=== PATIENT | female | born 1955 | race Caucasian/White ===

== ENCOUNTER 2017-05-20 05:10 | Inpatient (IN) | payer BC ==
--- NOTE | 2017-05-15 10:37 | MH ---
cc: AILEEN BACA DATE OF ADMISSION: 05/20/2017 ADMITTING DIAGNOSIS Severe osteoarthritis of the left glenohumeral joint and pain of the left shoulder HISTORY OF PRESENT ILLNESS The patient is a 61-year-old white female who has experienced pain in her left shoulder for greater than four years duration. She had originally noted the gradual onset of soreness and stiffness about her shoulder area unrelated to any injury or unusual activity. She had undergone previous orthopedic evaluation and at that time was diagnosed as having an arthritic condition of her shoulder. Over the following year she did receive multiple cortisone injections which in the more recent past was being administered every three months. Unfortunately the patient was unable to appreciate any long-term benefit. She had also been utilizing both ibuprofen and Aleve without any appreciable relief. With the passage of time she became progressively more symptomatic with pain and obvious limitations regarding all activities of daily living involving the use of her left upper extremity. Within the past nine years she had fallen from a roof landing onto her left side but did not recall any specific injury involving her shoulder area at that time. When seen in the office in February of this year as a second opinion evaluation her x-ray studies did reveal severe degenerative changes of the glenohumeral joint with subtotal obliteration of the joint space and prominent hypertrophic bony reaction along the inferior margin of the humeral head. Findings and treatment options were reviewed with the patient at that time. The pros and cons of continuing with conservative management versus operative intervention involving shoulder arthroplasty were outlined in detail. Emphasis was made regarding the fact that the decision to proceed with surgery would be left entirely to the patient's discretion. At that time the patient was prescribed diclofenac and followed on an outpatient basis thereafter. She remained symptomatic with pain about the shoulder area and subsequently underwent a CT scan with contrast the results of which identified marked osteoarthritis of the glenohumeral joint with posterior downsloping of the glenoid and a small posterior labral tear. The rotator cuff was reported to be intact. These findings were reviewed and treatment options discussed. Once again the option for surgery was outlined and at that time the patient felt that her symptoms had progressed to a point in time where she was ready to proceed with such treatment. In compliance with her wishes she is currently being admitted to the hospital in order that reverse shoulder arthroplasty be accomplished. She is right hand dominant. PAST MEDICAL HISTORY Her past medical history, hospitalizations and surgeries have included: 1. Appendectomy. 2. Tonsillectomy. 3. Tubal ligation. 4. Colonoscopy. Her medical illnesses include: Hypertension for which the patient takes lisinopril 20 mg daily. MEDICATIONS Additional medications include: 1. Paroxetine 20 mg daily. 2. Prempro 0.625 mg daily. 3. Pravastatin 20 mg daily. 4. 81 mg aspirin tablet daily. 5. Vitamin-C twice daily. 6. Citracal twice daily. 7. Fish oil 1400 mg daily. 8. Vitamin-B12 1000 mg daily. 9. Adult multivitamin tablet daily. 10. Night Aid 50 mg daily. 11. Naproxen 220 mg, four tablets daily. ALLERGIES The patient denies any known drug allergies. REVIEW OF SYSTEMS She wears both glasses and contact lenses. History of migraine headaches. No seizure or syncope. No sinus congestion or epistaxis. Auditory acuity intact. No tinnitus. No bleeding gums or dysphagia. Denies cough, shortness of breath, upper respiratory infection, pneumonia or tuberculosis. No angina or heart disease. She is medically managed for hypertension. Her appetite is good. Bowel movements are regular. No hepatitis, gallbladder disease, ulcers or hemorrhoids. No urinary tract infection. No kidney stones. No fractures. No psychiatric illness. Her remaining review of systems is unremarkable and noncontributory. FAMILY HISTORY The patient has been for four years, this being her third marriage. Her is in good health. Two sons described as being in good health. Family history is otherwise positive for hypertension, diabetes and heart disease. SOCIAL HISTORY The patient completed a high school education. 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 She denies active use of tobacco for over 20 years, but had been an approximately one pack per day user on an intermittent basis during the 20-25 years prior to that time. Ethanol consumption on a very limited and rare basis. PHYSICAL EXAMINATION Height 5 feet 2 inches, weight 142 pounds. GENERAL: An alert, oriented and responsive 61-year-old white female who sits quietly upon the examination table with no obvious distress. HEAD, EYES, EARS, NOSE, AND THROAT: Pupils are equally round and reactive to light. Extraocular movements full. Sclera clear. External nares clear. External auditory canals clear. Dental intact. Mucous membranes pink and moist. Pharynx clear. NECK: Supple. Active range of motion with no appreciable pain. Carotid pulse palpable bilaterally. Trachea midline. Thyroid without enlargement. LUNGS: Clear to auscultation and percussion. No CVA tenderness. BACK: No discomfort throughout the dorsolumbar spine. HEART: Regular rhythm. No murmur or gallop. ABDOMEN: Soft, nontender. Bowel sounds present. PELVIC: Per primary care physician. EXTREMITIES: Left Shoulder: There is tenderness generalized about the shoulder region, especially involving the anterior and superior aspect of the shoulder joint. No palpable deformity. Limited and restricted mobility of the shoulder joint in all ranges assessed with the patient unable to demonstrate no more than 30 degrees of forward flexion with pain at the extreme of motion, 30 degrees of extension. Internal rotation limited to the lateral waist level. The patient is unable to complete satisfactory cross arm positioning of left hand onto right shoulder. Drop-arm test is positive. 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 Sensory intact. NEUROLOGIC: Cranial nerves II through XII grossly intact. IMPRESSION 1. Severe osteoarthritis of the left glenohumeral joint. 2. Pain left shoulder PLAN Left reverse shoulder arthroplasty. The nature of the planned surgical procedure, the potential complications and risks associated, the expectations of surgery and the consent form were thoroughly reviewed with the patient prior to her admission to the hospital. In addition, emphasis was made regarding the fact that the patient was definitely on the young side of the chronological scale for such surgery but given her degree of incapacitation and limitations it is anticipated that this procedure offers the patient a more favorable option for benefit at this point in time. The patient has indicated her full understanding in this regard and given consent to proceed with treatment as outlined. Medical evaluation and clearance for surgery will be completed by her primary care physician, Dr. Jonh Neff. Aileen Baca MD NBS/BT /11:42 AM /10:23 AM
[~2017-05-20] VITALS: Ht 160 cm; Wt 64.6 kg
[~2017-05-20 05:10] MED LIST: CYAN1TAB24 PO; LISI-515 PO; MULTTAB25 PO; OMEG12007 PO; PARO20TA2 PO; PRAV20TA2 PO; PREM.625 PO; TYLE325T PO; ZINC50TA2 PO
[2017-05-20] MEDS ORDERED: SODIUM CHLORID 0.9% 500 ML IV PRN (05:30)
[2017-05-20] MEDS ORDERED: POVIDONE IODINE 5% (ANTISEPSIS KIT) 4 APPLICATIONS EACH NARE PRN (05:30)
[2017-05-20] MEDS ORDERED: CHLORHEXIDINE GLUCONATE 2 % 1 PACK (2 CLOTHS) TOPICAL PRN (05:30)
[2017-05-20] MEDS ORDERED: LACTATED RINGER'S 1000 ML IV PRN (05:30)
[2017-05-20] MEDS ORDERED: METOPROLOL TARTRATE 25 MG TAB PO PRN (05:30)
[2017-05-20] MEDS ORDERED: INSULIN HUMAN REGULAR 1,000 UNITS/10 ML VIAL SQ PRN (05:30)
[2017-05-20] MEDS ORDERED: ceFAZolin 2 GM PREMIX 50 ML IV SCH (05:45)
[2017-05-20] MEDS ORDERED: POVIDONE IODINE 7.5% SCRUB 118 ML BOTTLE TOPICAL SCH (05:45)
[2017-05-20] MEDS ORDERED: ceFAZolin INJ 1,000 MG VIAL ONE (05:54)
[2017-05-20] MEDS ORDERED: TRANEXAMIC ACID 1 GM PRIOR TO PROCEDURE IV SCH ×2 (07:00)
[2017-05-20] MEDS: TRANEXAMIC ACID 1 GM POST-OP IV SCH ×4 (09:44→10:05)
[2017-05-20] MEDS ORDERED: DO NOT ADM ANY ANTICOAGULANT DRUGS PRN (10:01)
[2017-05-20] MEDS ORDERED: TRANEXAMIC ACID INJ 1,000 MG in SODIUM CHLORIDE 0.9% INJ 100 ML IV ONE (10:05)
[2017-05-20] MEDS ORDERED: BUPIVACAINE HCL PF 0.5% 30 ML VIAL ONE (10:27)
--- NOTE | 2017-05-20 10:34 | MP ---
cc: AILEEN BACA MD DATE OF SURGERY 05/20/2017 PREOPERATIVE DIAGNOSIS Severe osteoarthritis of the left glenohumeral joint with pain of the left shoulder. POSTOPERATIVE DIAGNOSIS Severe osteoarthritis of the left glenohumeral joint with pain of the left shoulder. PROCEDURE Left reverse shoulder arthroplasty. SURGEON Aileen Baca MD ANESTHESIA General endotracheal INDICATIONS This is a 61-year-old white female with pain of her left shoulder of greater than four years duration. She had originally noted the gradual onset of her symptoms unrelated to injury or unusual activity. She has undergone previous orthopedic evaluation at which time she was diagnosed as having an arthritic condition of her shoulder and over the following years, she did receive multiple cortisone injections which in the recent past had been administered every three months. Unfortunately, the patient was unable to appreciate any long-term benefit as well as utilizing both ibuprofen and Aleve without relief of her discomfort. With the passage of time, she became progressively more symptomatic with pain and obvious limitations regarding all activities of daily living that involved the use of her left upper extremity. Within the past nine years, she had fallen from a roof landing onto her left side, but did not recall any specific injury involving her shoulder area. She was seen in the office in February of this year for a second opinion evaluation. At that time, her x-ray studies revealed severe degenerative changes of the glenohumeral joint with subtotal obliteration of the joint space and prominent hypertrophic bony reaction along the inferior margin of the humeral head. Findings and treatment options were reviewed with the patient at that time. The pros and cons of continuing with conservative management versus operative intervention that would involve a shoulder arthroplasty were outlined in detail. Emphasis was made regarding the fact that the decision to proceed with surgery will be left entirely to the patient's discretion. The patient was prescribed diclofenac while being followed on an outpatient basis, but remained symptomatic about the shoulder area. A subsequent CT scan with contrast of the left shoulder identified marked osteoarthritis of the glenohumeral joint with posterior downsloping of the glenoid and a small posterior labral tear. The rotator cuff was intact. Findings and treatment options were again reviewed. Once again, the option for surgery was outlined. The patient felt that her symptoms had progressed to a point in time where she was ready to proceed with such treatment and in compliance with her wishes, she was scheduled for admission in order that reverse shoulder arthroplasty be accomplished, she is right-hand dominant. FORMAT Following the induction of satisfactory general anesthesia by endotracheal intubation as completed per the Department of Anesthesia, the patient was positioned upon the operating table in a modified beach-chair configuration. The left shoulder and aspirate tremor the proper was isolated with a U-drape thereafter being prepped with Betadine solution and draped into a sterile field in the routine manner. Prior to initiation of the actual procedure, the standard time-out protocol was completed. All parameters were appropriately addressed and confirmed by operating room personnel. A standard anterior approach to the shoulder was initiated through a sharp skin incision overlying the deltopectoral interval being extended from the inferior margin of the clavicle overlying the prominence of the coracoid process and extending distally to the axillary crease. The incision was developed through underlying subcutaneous tissue with hemostasis maintained by electrocautery. By deepening dissection, the deltopectoral interval was developed. The cephalic vein was exposed and utilized as an anatomical landmark as the interval was developed in a distal to proximal orientation, the vein being retracted in a lateral orientation with the deltoid musculature. Digital release of subdeltoid adhesions was accomplished and thereafter the shoulder was maintained in a slightly externally rotated orientation. A limited release of the pectoralis major insertion was accomplished. The three sister circumflex vessels were identified, clamped and coagulated. The biceps tendon was released proximally and tenodesed to the stump of the pectoralis tendon, the excess portion being resected. With the shoulder maintained in an externally rotated orientation, the subscapularis tendon was released in a superior to inferior orientation along the anatomical neck of the humerus. The humeral head was developed into the wound. There was a prominent hypertrophic reaction along the inferior margins of the humeral head which removed with a rongeur. An entry point was placed superiorly about the humeral head adjacent to the bicipital groove and thereafter sequential rasping was accomplished from 4 through 9 mm. Broaching followed with matching sizes through 9 mm with a 9 mm stem determined to be a satisfactory fit. The covering cap was placed and attention was directed to the glenoid. Retractors were placed posterior, anterior and superiorly facilitating exposure. The stump of the biceps tendon was resected as was the glenoid labrum and the superior middle inferior glenohumeral ligament. With the glenoid exposed in a 360 degree circumferential orientation, hash zuniga were placed at the 12 to 6 o'clock position and the 3 to 9 o'clock position allowing orientation of the central portion of the glenoid. A guide pin was placed in slight inferior tilt over which the step-down reamer was passed creating a central peg hole. Thereafter, a 25 mm Glenosphere mini baseplate was firmly seated with a 35 mm central locking screw placed. Peripheral locking screws include 25-mm screws superiorly and inferiorly and 15 mm screws anteriorly and posteriorly. With the baseplate firmly established, a 36 mm Glenosphere was firmly seated with maximum inferior offset. Attention was redirected to the proximal humerus with the [address] Trial reductions followed utilizing 36 x 44-mm bearings both standard and +3 sizing utilize, the +3 sizing determined to be the more favorable and stable fit. With the bearing in place, the shoulder was carried through a passive range of motion with stability demonstrated throughout the arc of mobility. An open dislocation was completed. The trial humeral components being removed, the canal was thoroughly irrigated and dried and thereafter the 9 mm mini humeral stem was firmly seated to which a 44-mm humeral tray with 44 x 36 +3 humeral bearing attached to the stem itself and an open reduction completed. Repeat range of motion again noted stability as previously described. Final irrigation was accomplished with hemostasis maintained. The deltopectoral interval was repaired with 0 Vicryl suture. The remaining portion of the wound was closed in layers in the routine manner skin margins being reapproximated with a running subcuticular 3-0 Vicryl suture over which Steri-Strips were applied. A dry sterile dressing was placed. The extremity being supported an arm sling, anesthesia was discontinued. The patient was thus transferred to a hospital bed returned to recovery room in satisfactory condition having tolerated her operative procedure well. Estimated blood loss was approximately 300 cc as determined per the Anesthesia. 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 MD SHAD Beth/AGATA /10:02 AM /10:14 AM
--- NOTE | 2017-05-20 10:40 | RADRPT ---
EXAM DATE/TIME: 05/20/2017 10:22 [facility] COMPARISON: No previous studies available for comparison. INDICATIONS : Post op left shoulder surgery. MEDICAL HISTORY : None. SURGICAL HISTORY : None. ENCOUNTER: Initial ACUITY: 1 day PAIN SCORE: 10/10 LOCATION: Left shoulder FINDINGS: Status post total shoulder arthroplasty. Prosthesis well seated, alignment anatomic. CONCLUSION: Anatomic alignment. Bigg Flores MD FACR on May 20, 2017 at 10:39 Board Certified Radiologist. This report was verified electronically.
[2017-05-20 11:22] VITALS: BP 121/66; PULSE 109; RESP 17; TEMP 98.9; O2SAT 98
--- NOTE | 2017-05-20 11:22 | PD.CONS ---
[facility] By Reason for Consult medical management Primary Care Physician No Primary Care Physician Diagnoses: History of Present Illness patient is a 62 y/o female with history of left shoulder osteoarthritis who underwent left shoulder arthroplasty today. at the time of my evaluation she was resting comfortably with no acute distress.pain is controlled. she denies any chest pain, sob, dizziness. no nausea or vomiting. Review of Systems Constitutional: DENIES: Fever, Weight loss, Chills, Night Sweats Eyes: DENIES: Blurred vision, Diplopia, Vision loss, Double Vision Ears, nose, mouth, throat: DENIES: Tinnitus, Vertigo, Throat pain, Epistaxis Respiratory: DENIES: Apneas, Cough, Snoring, Wheezing, Hemoptysis, Sputum production, Shortness of breath Cardiovascular: DENIES: Chest pain, Palpitations, Syncope, Dyspnea on Exertion , PND, Lower Extremity Edema, Orthopnea, Claudication Gastrointestinal: DENIES: Abdominal pain, Black stools, Bloody stools, Constipation, Diarrhea, Nausea, Vomiting, Difficulty Swallowing, Anorexia Genitourinary: DENIES: Urinary frequency, Urgency, Hematuria, Dysuria Musculoskeletal: DENIES: Joint pain, Muscle aches, Stiffness, Joint Swelling Integumentary: DENIES: Rash Neurologic: DENIES: Abnormal gait, Headache, Localized weakness, Paresthesias, Seizures, Speech Problems, Tremor, Poor Balance Psychiatric: DENIES: Anxiety, Confusion, Mood changes, Depression, Hallucinations, Agitation, Suicidal Ideation, Homicidal Ideation, Delusions Past Family Social History Allergies: Coded Allergies: No Known Allergies (Unverified , 05/20/17) Past Medical History osteoarthritis hypertension dyslipidemia Past Surgical History appendectomy tonsillectomy Reported Medications lisinopril pravastatin estrogen/progesterone paxil Active Ordered Medications Current Medications Lactated Ringer's 1,000 ml @ 30 mls/hr Q24H PRN IV SEE LABEL COMMENTS Last administered on 05/20/17t 06:00; Start 05/20/17 at 05:30; Stop 05/23/17 at 05:29 Sodium Chloride 500 ml @ 30 mls/hr [id number] PRN IV SEE LABEL COMMENTS; Start at 05:30; Stop 05/23/17 at 05:29 Metoprolol Tartrate (Lopressor) 25 mg [employer]OR [employer]SEM[employer] PRN PO SEE LABEL COMMENTS; Start 05/20/17 at 05:30; Stop 05/23/17 at 05:29 Povidone Iodine (Betadine 5% Antisepsis Kit) 1 applic [employer]OR [employer] PRN EACH NARE SEE LABEL COMMENTS Last administered on 05/20/17 06:00; Start 05/20/17 at 05:30 ; Stop 05/23/17 at 05:29 Chlorhexidine Gluconate (Chlorhexidine 2% Cloth) 3 pack [employer] PRN TOPICAL SEE LABEL COMMENTS Last administered on 05/20/17 06:00; Start 05/20/17 at 05:30 ; Stop 05/23/17 at 05:29 Insulin Human Regular (NovoLIN R INJ) See Protocol Table ... [employer] PRN SQ SEE PROTOCOL TABLE; Start 05/20/17 at 05:30; Stop 05/23/17 at 05:29 Povidone Iodine (Betadine 7.5% Scrub) 1 applic ONCE TOPICAL Last administered on 05/20/17 06:00; Start 05/20/17 at 05:45; Stop 05/23/17 at 05:44 Cefazolin Sodium/ Dextrose 50 ml @ 100 mls/hr [employer] IV ; Start 05/20/17 at 05:45; Stop 05/23/17 at 05:44 Tranexamic Acid 1000 mg/Sodium Chloride 110 ml @ 220 mls/hr ONCE IV Last administered on 05/20/17 06:44; Start 05/20/17 at 07:00; Stop 05/20/17 at 13:00 Tranexamic Acid 1000 mg/Sodium Chloride 110 ml @ 220 mls/hr ONCE IV Last administered on 05/20/17 09:44; Start 05/20/17 at 10:00; Stop 05/20/17 at 11:00 ; Status DC Cefazolin Sodium (Ancef Inj) 2,000 mg STK-MED ONCE .ROUTE Last administered on 05/18/17 06:44; Start 05/20/17 at 05:54; Stop 05/20/17 at 05:55; Status DC Dextrose/Sodium Chloride 1,000 ml @ 125 mls/hr Q8H IV ; Start 05/20/17 at 10:06 ; Status UNV IV Flush (NS Flush) 2 ml UNSCH PRN IVF FLUSH AFTER USING IV ACCESS; Start 05/20 at 10:15; Status UNV IV Flush (NS Flush) 2 ml BID IVF ; Start 05/20/17 at 21:00; Status UNV Cefazolin Sodium 1000 mg/Sodium Chloride 100 ml @ 200 mls/hr Q6H IV ; Start at 10:15; Stop 05/20/17 at 22:44; Status UNV Miscellaneous Information (Post-op Orders (for Pharmacy)) STAT ONCE XX ; Start 05/20/17 at 10:15; Stop 05/20/17 at 10:16; Status UNV Rivaroxaban (Xarelto) 10 mg Q24H PO ; Start 05/20/17 at 10:15; Status UNV Miscellaneous Medication ([facility] [place] [facility] Information) ONCE ONCE XX ; Start 05/20/17 at 10:15; Stop 05/20/17 at 10:16; Status UNV Acetaminophen/ Hydrocodone Bitart (Kelayres 5-325 Mg) 1 tab Q4H PRN PO PAIN LESS THAN 5 ON SCALE; Start 05/20/17 at 10:15; Status UNV Acetaminophen/ Hydrocodone Bitart (Kelayres 5-325 Mg) 2 tab Q4H PRN PO PAIN SCALE 5 TO 10; Start 05/20/17 at 10:15; Status UNV Tranexamic Acid 1000 mg/Sodium Chloride 110 ml @ 200 mls/hr UNSCH IV ; Start 05/20/17 at 10:15; Stop 05/20/17 at 10:47; Status UNV Ondansetron HCl (Zofran Inj) 4 mg Q6H PRN IVP NAUSEA OR VOMITING; Start at 10:15; Status UNV Zolpidem Tartrate (Ambien) 5 mg HS PRN PO SLEEP; Start 05/20/17 at 10:15; Status UNV Bisacodyl (Dulcolax Supp) 10 mg DAILY PRN [place] CONSTIPATION; Start 05/20/17 at 10 :15; Status UNV Naloxone HCl (Narcan Inj) 0.4 mg UNSCH PRN IV PUSH RESPIRATORY RATE LESS THAN 10; Start 05/20/17 at 10:15; Status UNV Morphine Sulfate (Morphine 1 Mg/ ml POSTDOCTORAL SCHOLAR) 30 mg UNSCH IV ; Start 05/20/17 at 10: 15; Status UNV POSTDOCTORAL SCHOLAR Dosage Infused (Pha) 1 Q8HR .XX ; Start 05/20/17 at 14:00; Status UNV Bupivacaine HCl (Marcaine Pf 0.5% Inj) 30 ml STK-MED ONCE .ROUTE ; Start at 10:27; Stop 05/20/17 at 10:28; Status DC Family History not relevant to this consult. Social History quit smoking years ago- doesn't drink. Physical Exam Vital Signs Vital Signs Date Time Temp Pulse Resp B/P (MAP) Pulse Ox O2 Delivery O2 Flow Rate FiO2 05/20/17 10:04 97.8 121 20 133/74 (93) 97 Nasal Cannula 2 05/20/17 05:48 98.4 89 20 143/82 (102) 96 Physical Exam GENERAL: This is a well-nourished, well-developed patient, in no apparent distress. SKIN: No rashes, ecchymoses or lesions. Cool and dry. HEAD: Atraumatic. Normocephalic. No temporal or scalp tenderness. EYES: Pupils equal round and reactive. Extraocular motions intact. No scleral icterus. No injection or drainage. ENT: Nose without bleeding, purulent drainage or septal hematoma. Throat without erythema, tonsillar hypertrophy or exudate. Uvula midline. Airway patent. NECK: Trachea midline. No JVD or lymphadenopathy. Supple, nontender, no meningeal signs. CARDIOVASCULAR: Regular rate and rhythm without murmurs, gallops, or rubs. RESPIRATORY: Clear to auscultation. Breath sounds equal bilaterally. No wheezes , rales, or rhonchi. GASTROINTESTINAL: Abdomen soft, non-tender, nondistended. No hepato-splenomegaly , or palpable masses. No guarding. MUSCULOSKELETAL: left shoulder covered with clean dressing. NEUROLOGICAL: Awake and alert. Cranial nerves II through XII intact. Motor and sensory grossly within normal limits. Five out of 5 muscle strength in all muscle groups. Normal speech. Imaging Last Impressions Shoulder X-Ray 05/20/17 0000 Signed Impressions: Service Date/Time: Saturday, May 20, 2017 10:22 - CONCLUSION: Anatomic alignment. Bigg Flores MD FACR Assessment and Plan Assessment and Plan A/P - osteoarthritis of the left shoulder- s/p left shoulder arthroplasty- management per ortho. -hypertension/ dyslipidemia; resume home meds -DVT prophylaxis; on Xarelto-per ortho thank you for the consult. Discussed Condition With the patient and RN. Kerrie Khalil MD May 20, 2017 11:22
--- NOTE | 2017-05-20 11:22 | PD.CONS ---
[facility] Service [facility] Consult Requested By Reason for Consult medical management Primary Care Physician No Primary Care Physician Diagnoses: History of Present Illness patient is a 62 y/o female with history of left shoulder osteoarthritis who underwent left shoulder arthroplasty today. at the time of my evaluation she was resting comfortably with no acute distress.pain is controlled. she denies any chest pain, sob, dizziness. no nausea or vomiting. Review of Systems Constitutional: DENIES: Fever, Weight loss, Chills, Night Sweats Eyes: DENIES: Blurred vision, Diplopia, Vision loss, Double Vision Ears, nose, mouth, throat: DENIES: Tinnitus, Vertigo, Throat pain, Epistaxis Respiratory: DENIES: Apneas, Cough, Snoring, Wheezing, Hemoptysis, Sputum production, Shortness of breath Cardiovascular: DENIES: Chest pain, Palpitations, Syncope, Dyspnea on Exertion , PND, Lower Extremity Edema, Orthopnea, Claudication Gastrointestinal: DENIES: Abdominal pain, Black stools, Bloody stools, Constipation, Diarrhea, Nausea, Vomiting, Difficulty Swallowing, Anorexia Genitourinary: DENIES: Urinary frequency, Urgency, Hematuria, Dysuria Musculoskeletal: DENIES: Joint pain, Muscle aches, Stiffness, Joint Swelling Integumentary: DENIES: Rash Neurologic: DENIES: Abnormal gait, Headache, Localized weakness, Paresthesias, Seizures, Speech Problems, Tremor, Poor Balance Psychiatric: DENIES: Anxiety, Confusion, Mood changes, Depression, Hallucinations, Agitation, Suicidal Ideation, Homicidal Ideation, Delusions Past Family Social History Allergies: Coded Allergies: No Known Allergies (Unverified , 05/20/17) Past Medical History osteoarthritis hypertension dyslipidemia Past Surgical History appendectomy tonsillectomy Reported Medications lisinopril pravastatin estrogen/progesterone paxil Active Ordered Medications Current Medications Lactated Ringer's 1,000 ml @ 30 mls/hr Q24H PRN IV SEE LABEL COMMENTS Last administered on 05/20/17t 06:00; Start 05/20/17 at 05:30; Stop 05/23/17 at 05:29 Sodium Chloride 500 ml @ 30 mls/hr [id number] PRN IV SEE LABEL COMMENTS; Start at 05:30; Stop 05/23/17 at 05:29 Metoprolol Tartrate (Lopressor) 25 mg TRUCK LOADER PRN PO SEE LABEL COMMENTS; Start 05/20/17 at 05:30; Stop 05/23/17 at 05:29 Povidone Iodine (Betadine 5% Antisepsis Kit) 1 applic TRUCK LOADER PRN EACH NARE SEE LABEL COMMENTS Last administered on 05/20/17 06:00; Start 05/20/17 at 05:30 ; Stop 05/23/17 at 05:29 Chlorhexidine Gluconate (Chlorhexidine 2% Cloth) 3 pack TRUCK LOADER PRN TOPICAL SEE LABEL COMMENTS Last administered on 05/20/17 06:00; Start 05/20/17 at 05:30 ; Stop 05/23/17 at 05:29 Insulin Human Regular (NovoLIN R INJ) See Protocol Table ... TRUCK LOADER PRN SQ SEE PROTOCOL TABLE; Start 05/20/17 at 05:30; Stop 05/23/17 at 05:29 Povidone Iodine (Betadine 7.5% Scrub) 1 applic ONCE TOPICAL Last administered on 05/20/17 06:00; Start 05/20/17 at 05:45; Stop 05/23/17 at 05:44 Cefazolin Sodium/ Dextrose 50 ml @ 100 mls/hr TRUCK LOADER IV ; Start 05/20/17 at 05:45; Stop 05/23/17 at 05:44 Tranexamic Acid 1000 mg/Sodium Chloride 110 ml @ 220 mls/hr ONCE IV Last administered on 05/20/17 06:44; Start 05/20/17 at 07:00; Stop 05/20/17 at 13:00 Tranexamic Acid 1000 mg/Sodium Chloride 110 ml @ 220 mls/hr ONCE IV Last administered on 05/20/17 09:44; Start 05/20/17 at 10:00; Stop 05/20/17 at 11:00 ; Status DC Cefazolin Sodium (Ancef Inj) 2,000 mg STK-MED ONCE .ROUTE Last administered on 05/18/17 06:44; Start 05/20/17 at 05:54; Stop 05/20/17 at 05:55; Status DC Dextrose/Sodium Chloride 1,000 ml @ 125 mls/hr Q8H IV ; Start 05/20/17 at 10:06 ; Status UNV IV Flush (NS Flush) 2 ml UNSCH PRN IVF FLUSH AFTER USING IV ACCESS; Start 05/20 at 10:15; Status UNV IV Flush (NS Flush) 2 ml BID IVF ; Start 05/20/17 at 21:00; Status UNV Cefazolin Sodium 1000 mg/Sodium Chloride 100 ml @ 200 mls/hr Q6H IV ; Start at 10:15; Stop 05/20/17 at 22:44; Status UNV Miscellaneous Information (Post-op Orders (for Pharmacy)) STAT ONCE XX ; Start 05/20/17 at 10:15; Stop 05/20/17 at 10:16; Status UNV Rivaroxaban (Xarelto) 10 mg Q24H PO ; Start 05/20/17 at 10:15; Status UNV Miscellaneous Medication ([facility] [place] Pharmacy Information) ONCE ONCE XX ; Start 05/20/17 at 10:15; Stop 05/20/17 at 10:16; Status UNV Acetaminophen/ Hydrocodone Bitart ([place] 5-325 Mg) 1 tab Q4H PRN PO PAIN LESS THAN 5 ON SCALE; Start 05/20/17 at 10:15; Status UNV Acetaminophen/ Hydrocodone Bitart ([place] 5-325 Mg) 2 tab Q4H PRN PO PAIN SCALE 5 TO 10; Start 05/20/17 at 10:15; Status UNV Tranexamic Acid 1000 mg/Sodium Chloride 110 ml @ 200 mls/hr UNSCH IV ; Start 05/20/17 at 10:15; Stop 05/20/17 at 10:47; Status UNV Ondansetron HCl (Zofran Inj) 4 mg Q6H PRN IVP NAUSEA OR VOMITING; Start at 10:15; Status UNV Zolpidem Tartrate (Ambien) 5 mg HS PRN PO SLEEP; Start 05/20/17 at 10:15; Status UNV Bisacodyl (Dulcolax Supp) 10 mg DAILY PRN [place] CONSTIPATION; Start 05/20/17 at 10 :15; Status UNV Naloxone HCl (Narcan Inj) 0.4 mg UNSCH PRN IV PUSH RESPIRATORY RATE LESS THAN 10; Start 05/20/17 at 10:15; Status UNV Morphine Sulfate (Morphine 1 Mg/ ml LAWYER) 30 mg UNSCH IV ; Start 05/20/17 at 10: 15; Status UNV LAWYER Dosage Infused (Pha) 1 Q8HR .XX ; Start 05/20/17 at 14:00; Status UNV Bupivacaine HCl (Marcaine Pf 0.5% Inj) 30 ml STK-MED ONCE .ROUTE ; Start at 10:27; Stop 05/20/17 at 10:28; Status DC Family History not relevant to this consult. Social History quit smoking years ago- doesn't drink. Physical Exam Vital Signs Vital Signs Date Time Temp Pulse Resp B/P (MAP) Pulse Ox O2 Delivery O2 Flow Rate FiO2 05/20/17 10:04 97.8 121 20 133/74 (93) 97 Nasal Cannula 2 05/20/17 05:48 98.4 89 20 143/82 (102) 96 Physical Exam GENERAL: This is a well-nourished, well-developed patient, in no apparent distress. SKIN: No rashes, ecchymoses or lesions. Cool and dry. HEAD: Atraumatic. Normocephalic. No temporal or scalp tenderness. EYES: Pupils equal round and reactive. Extraocular motions intact. No scleral icterus. No injection or drainage. ENT: Nose without bleeding, purulent drainage or septal hematoma. Throat without erythema, tonsillar hypertrophy or exudate. Uvula midline. Airway patent. NECK: Trachea midline. No JVD or lymphadenopathy. Supple, nontender, no meningeal signs. CARDIOVASCULAR: Regular rate and rhythm without murmurs, gallops, or rubs. RESPIRATORY: Clear to auscultation. Breath sounds equal bilaterally. No wheezes , rales, or rhonchi. GASTROINTESTINAL: Abdomen soft, non-tender, nondistended. No hepato-splenomegaly , or palpable masses. No guarding. MUSCULOSKELETAL: left shoulder covered with clean dressing. NEUROLOGICAL: Awake and alert. Cranial nerves II through XII intact. Motor and sensory grossly within normal limits. Five out of 5 muscle strength in all muscle groups. Normal speech. Imaging Last Impressions Shoulder X-Ray 05/20/17 0000 Signed Impressions: Service Date/Time: Saturday, May 20, 2017 10:22 - CONCLUSION: Anatomic alignment. Bigg Flores MD FACR Assessment and Plan Assessment and Plan A/P - osteoarthritis of the left shoulder- s/p left shoulder arthroplasty- management per ortho. -hypertension/ dyslipidemia; resume home meds -DVT prophylaxis; on Xarelto-per ortho thank you for the consult. Discussed Condition With the patient and RN. Kerrie Khalil MD May 20, 2017 11:22
--- NOTE | 2017-05-20 11:22 | PD.CONS ---
[facility] By Reason for Consult medical management Primary Care Physician No Primary Care Physician Diagnoses: History of Present Illness patient is a 62 y/o female with history of left shoulder osteoarthritis who underwent left shoulder arthroplasty today. at the time of my evaluation she was resting comfortably with no acute distress.pain is controlled. she denies any chest pain, sob, dizziness. no nausea or vomiting. Review of Systems Constitutional: DENIES: Fever, Weight loss, Chills, Night Sweats Eyes: DENIES: Blurred vision, Diplopia, Vision loss, Double Vision Ears, nose, mouth, throat: DENIES: Tinnitus, Vertigo, Throat pain, Epistaxis Respiratory: DENIES: Apneas, Cough, Snoring, Wheezing, Hemoptysis, Sputum production, Shortness of breath Cardiovascular: DENIES: Chest pain, Palpitations, Syncope, Dyspnea on Exertion , PND, Lower Extremity Edema, Orthopnea, Claudication Gastrointestinal: DENIES: Abdominal pain, Black stools, Bloody stools, Constipation, Diarrhea, Nausea, Vomiting, Difficulty Swallowing, Anorexia Genitourinary: DENIES: Urinary frequency, Urgency, Hematuria, Dysuria Musculoskeletal: DENIES: Joint pain, Muscle aches, Stiffness, Joint Swelling Integumentary: DENIES: Rash Neurologic: DENIES: Abnormal gait, Headache, Localized weakness, Paresthesias, Seizures, Speech Problems, Tremor, Poor Balance Psychiatric: DENIES: Anxiety, Confusion, Mood changes, Depression, Hallucinations, Agitation, Suicidal Ideation, Homicidal Ideation, Delusions Past Family Social History Allergies: Coded Allergies: No Known Allergies (Unverified , 05/20/17) Past Medical History osteoarthritis hypertension dyslipidemia Past Surgical History appendectomy tonsillectomy Reported Medications lisinopril pravastatin estrogen/progesterone paxil Active Ordered Medications Current Medications Lactated Ringer's 1,000 ml @ 30 mls/hr Q24H PRN IV SEE LABEL COMMENTS Last administered on 05/20/17t 06:00; Start 05/20/17 at 05:30; Stop 05/23/17 at 05:29 Sodium Chloride 500 ml @ 30 mls/hr [id number] PRN IV SEE LABEL COMMENTS; Start at 05:30; Stop 05/23/17 at 05:29 Metoprolol Tartrate (Lopressor) 25 mg FOUR H AGENT PRN PO SEE LABEL COMMENTS; Start 05/20/17 at 05:30; Stop 05/23/17 at 05:29 Povidone Iodine (Betadine 5% Antisepsis Kit) 1 applic FOUR H AGENT PRN EACH NARE SEE LABEL COMMENTS Last administered on 05/20/17 06:00; Start 05/20/17 at 05:30 ; Stop 05/23/17 at 05:29 Chlorhexidine Gluconate (Chlorhexidine 2% Cloth) 3 pack FOUR H AGENT PRN TOPICAL SEE LABEL COMMENTS Last administered on 05/20/17 06:00; Start 05/20/17 at 05:30 ; Stop 05/23/17 at 05:29 Insulin Human Regular (NovoLIN R INJ) See Protocol Table ... FOUR H AGENT PRN SQ SEE PROTOCOL TABLE; Start 05/20/17 at 05:30; Stop 05/23/17 at 05:29 Povidone Iodine (Betadine 7.5% Scrub) 1 applic ONCE TOPICAL Last administered on 05/20/17 06:00; Start 05/20/17 at 05:45; Stop 05/23/17 at 05:44 Cefazolin Sodium/ Dextrose 50 ml @ 100 mls/hr FOUR H AGENT IV ; Start 05/20/17 at 05:45; Stop 05/23/17 at 05:44 Tranexamic Acid 1000 mg/Sodium Chloride 110 ml @ 220 mls/hr ONCE IV Last administered on 05/20/17 06:44; Start 05/20/17 at 07:00; Stop 05/20/17 at 13:00 Tranexamic Acid 1000 mg/Sodium Chloride 110 ml @ 220 mls/hr ONCE IV Last administered on 05/20/17 09:44; Start 05/20/17 at 10:00; Stop 05/20/17 at 11:00 ; Status DC Cefazolin Sodium (Ancef Inj) 2,000 mg STK-MED ONCE .ROUTE Last administered on 05/18/17 06:44; Start 05/20/17 at 05:54; Stop 05/20/17 at 05:55; Status DC Dextrose/Sodium Chloride 1,000 ml @ 125 mls/hr Q8H IV ; Start 05/20/17 at 10:06 ; Status UNV IV Flush (NS Flush) 2 ml UNSCH PRN IVF FLUSH AFTER USING IV ACCESS; Start 05/20 at 10:15; Status UNV IV Flush (NS Flush) 2 ml BID IVF ; Start 05/20/17 at 21:00; Status UNV Cefazolin Sodium 1000 mg/Sodium Chloride 100 ml @ 200 mls/hr Q6H IV ; Start at 10:15; Stop 05/20/17 at 22:44; Status UNV Miscellaneous Information (Post-op Orders (for Pharmacy)) STAT ONCE XX ; Start 05/20/17 at 10:15; Stop 05/20/17 at 10:16; Status UNV Rivaroxaban (Xarelto) 10 mg Q24H PO ; Start 05/20/17 at 10:15; Status UNV Miscellaneous Medication ([facility] [place] Pharmacy Information) ONCE ONCE XX ; Start 05/20/17 at 10:15; Stop 05/20/17 at 10:16; Status UNV Acetaminophen/ Hydrocodone Bitart ([place] 5-325 Mg) 1 tab Q4H PRN PO PAIN LESS THAN 5 ON SCALE; Start 05/20/17 at 10:15; Status UNV Acetaminophen/ Hydrocodone Bitart ([place] 5-325 Mg) 2 tab Q4H PRN PO PAIN SCALE 5 TO 10; Start 05/20/17 at 10:15; Status UNV Tranexamic Acid 1000 mg/Sodium Chloride 110 ml @ 200 mls/hr UNSCH IV ; Start 05/20/17 at 10:15; Stop 05/20/17 at 10:47; Status UNV Ondansetron HCl (Zofran Inj) 4 mg Q6H PRN IVP NAUSEA OR VOMITING; Start at 10:15; Status UNV Zolpidem Tartrate (Ambien) 5 mg HS PRN PO SLEEP; Start 05/20/17 at 10:15; Status UNV Bisacodyl (Dulcolax Supp) 10 mg DAILY PRN [place] CONSTIPATION; Start 05/20/17 at 10 :15; Status UNV Naloxone HCl (Narcan Inj) 0.4 mg UNSCH PRN IV PUSH RESPIRATORY RATE LESS THAN 10; Start 05/20/17 at 10:15; Status UNV Morphine Sulfate (Morphine 1 Mg/ ml BOILER FIREMAN) 30 mg UNSCH IV ; Start 05/20/17 at 10: 15; Status UNV BOILER FIREMAN Dosage Infused (Pha) 1 Q8HR .XX ; Start 05/20/17 at 14:00; Status UNV Bupivacaine HCl (Marcaine Pf 0.5% Inj) 30 ml STK-MED ONCE .ROUTE ; Start at 10:27; Stop 05/20/17 at 10:28; Status DC Family History not relevant to this consult. Social History quit smoking years ago- doesn't drink. Physical Exam Vital Signs Vital Signs Date Time Temp Pulse Resp B/P (MAP) Pulse Ox O2 Delivery O2 Flow Rate FiO2 05/20/17 10:04 97.8 121 20 133/74 (93) 97 Nasal Cannula 2 05/20/17 05:48 98.4 89 20 143/82 (102) 96 Physical Exam GENERAL: This is a well-nourished, well-developed patient, in no apparent distress. SKIN: No rashes, ecchymoses or lesions. Cool and dry. HEAD: Atraumatic. Normocephalic. No temporal or scalp tenderness. EYES: Pupils equal round and reactive. Extraocular motions intact. No scleral icterus. No injection or drainage. ENT: Nose without bleeding, purulent drainage or septal hematoma. Throat without erythema, tonsillar hypertrophy or exudate. Uvula midline. Airway patent. NECK: Trachea midline. No JVD or lymphadenopathy. Supple, nontender, no meningeal signs. CARDIOVASCULAR: Regular rate and rhythm without murmurs, gallops, or rubs. RESPIRATORY: Clear to auscultation. Breath sounds equal bilaterally. No wheezes , rales, or rhonchi. GASTROINTESTINAL: Abdomen soft, non-tender, nondistended. No hepato-splenomegaly , or palpable masses. No guarding. MUSCULOSKELETAL: left shoulder covered with clean dressing. NEUROLOGICAL: Awake and alert. Cranial nerves II through XII intact. Motor and sensory grossly within normal limits. Five out of 5 muscle strength in all muscle groups. Normal speech. Imaging Last Impressions Shoulder X-Ray 05/20/17 0000 Signed Impressions: Service Date/Time: Saturday, May 20, 2017 10:22 - CONCLUSION: Anatomic alignment. Bigg Flores MD FACR Assessment and Plan Assessment and Plan A/P - osteoarthritis of the left shoulder- s/p left shoulder arthroplasty- management per ortho. -hypertension/ dyslipidemia; resume home meds -DVT prophylaxis; on Xarelto-per ortho thank you for the consult. Discussed Condition With the patient and RN. Kerrie Khalil MD May 20, 2017 11:22
[2017-05-20] MEDS: MORPHINE SULFATE 30 MG/30 ML PCA IV SCH (11:35)
[2017-05-20] MEDS: DEXT 5%-NACL 0.45% 1000 ML INJ 1,000 ML IV SCH ×3 (12:00→21:45)
[2017-05-20] MEDS ORDERED: BISACODYL 10 MG SUPP RECTAL PRN (12:00)
[2017-05-20] MEDS ORDERED: MISCELLANEOUS PHARMACY INFORMATION XX ONE (12:00)
[2017-05-20] MEDS ORDERED: ONDANSETRON HCL 4 MG/2 ML VIAL IVP PRN (12:00)
[2017-05-20] MEDS ORDERED: NALOXONE HCL 0.4 MG/ML AMP IV PUSH PRN (12:00)
[2017-05-20] MEDS ORDERED: Post-op Orders (for Pharmacy) MISC XX ONE (12:00)
[2017-05-20] MEDS ORDERED: ACETAMINOPHEN/HYDROcodone 325 MG/5 MG TAB PO PRN (12:00)
[2017-05-20] MEDS ORDERED: SODIUM CHLORIDE 0.9% FLUSH 5 ML FLUSH IVF PRN (12:00)
[2017-05-20] MEDS: PCA - TOTAL MG MORPHINE DELIVERED PER SHIFT SCH ×2 (14:00→22:00)
--- NOTE | 2017-05-20 15:23 | EKG ---
Date Performed: 05/20/2017 Time Performed: 06:10:05 PTAGE: 62 years EKG: Sinus rhythm NORMAL ECG NO PREVIOUS TRACING DOCTOR: Sergey Peters Interpretating Date/Time 05/20/2017 15:21:55
--- NOTE | 2017-05-20 15:23 | EKG ---
Date Performed: 05/20/2017 Time Performed: 06:10:05 PTAGE: 62 years EKG: Sinus rhythm NORMAL ECG NO PREVIOUS TRACING DOCTOR: Sergey Peters Interpretating Date/Time 05/20/2017 15:21:55
--- NOTE | 2017-05-20 15:23 | EKG ---
Date Performed: 05/20/2017 Time Performed: 06:10:05 PTAGE: 62 years EKG: Sinus rhythm NORMAL ECG NO PREVIOUS TRACING DOCTOR: Sergey Peters Interpretating Date/Time 05/20/2017 15:21:55
[2017-05-20 16:00] VITALS: BP 116/73; PULSE 97; RESP 18; TEMP 97.2; O2SAT 96
[2017-05-20 16:19] VITALS: O2SAT 93
[2017-05-20] MEDS: SODIUM CHLORIDE 0.9% FLUSH 5 ML FLUSH IVF SCH (20:24)
[2017-05-20] MEDS: LISINOPRIL 20 MG TAB PO SCH (20:24)
[2017-05-20 20:57] VITALS: BP 120/72; PULSE 94; RESP 20; TEMP 96.6; O2SAT 96
[2017-05-20] MEDS ORDERED: ZOLPIDEM TARTRATE 5 MG TAB PO PRN (21:00)
[2017-05-21 00:49] VITALS: BP 100/61; PULSE 94; RESP 19; TEMP 96.7; O2SAT 95
[2017-05-21] MEDS: DEXT 5%-NACL 0.45% 1000 ML INJ 1,000 ML IV SCH ×3 (04:17→19:28)
[2017-05-21] MEDS: MORPHINE SULFATE 30 MG/30 ML PCA IV SCH (04:21)
[2017-05-21] MEDS: MAGNESIUM HYDROXIDE SUSP 30 ML CUP PO PRN ×2 (04:23→19:27)
[2017-05-21 05:50] VITALS: BP 133/64; PULSE 95; RESP 20; TEMP 98; O2SAT 96
[2017-05-21] MEDS: PCA - TOTAL MG MORPHINE DELIVERED PER SHIFT SCH ×4 (06:00→19:28)
[2017-05-21] MEDS ORDERED: HYDR-3516 PO (06:09)
[2017-05-21] MEDS ORDERED: ASPI325T PO (06:09)
--- NOTE | 2017-05-21 06:12 | HHI.FF ---
Face to Face Verification Diagnosis: (1) DJD of left shoulder Physical Therapy Gait training Occupational Therapy Left UE Weight Bearing: WB as tolerated Left UE Range of Motion: Active ROM Additional Instructions No external rotation > 45 degrees for initial 6 weeks post-op then progress with ROM as tolerated Nursing Dressing Changes: Daily dressing change I have seen patient Peyton Wasserman on 05/21/17. My clinical findings support the need for the requested home health care services because: Limited ability to care for self High risk of falls I certify that my clinical findings support that this patient is homebound because: Post-op weakness Unsteady gait/balance Unsafe to leave home unassisted Oswaldo Baca MD May 21, 2017 06:12
[2017-05-21 07:00] LABS: HEMATOCRIT 31.1 % (35.0-46.0); HEMOGLOBIN 10.4 GM/DL (11.6-15.3)
[2017-05-21 08:00] VITALS: BP 136/71; PULSE 101; RESP 16; TEMP 99.5; O2SAT 93
[2017-05-21] MEDS ORDERED: MEDROXYPROGESTERONE PO SCH (09:00)
[2017-05-21] MEDS: SODIUM CHLORIDE 0.9% FLUSH 5 ML FLUSH IVF SCH ×2 (09:00→19:27)
[2017-05-21] MEDS ORDERED: CONJUGATED ESTROGENS PO SCH (09:00)
[2017-05-21] MEDS: PARoxetine HCL 20 MG TAB PO SCH (09:54)
[2017-05-21] MEDS: PRAVASTATIN SOD 20 MG TAB PO SCH (09:54)
[2017-05-21] MEDS: RIVAROXABAN 10 MG TAB PO SCH (09:55)
[2017-05-21] MEDS: ACETAMINOPHEN/HYDROcodone 325 MG/5 MG TAB PO PRN ×4 (09:55→23:34)
--- NOTE | 2017-05-21 11:56 | HHI.PR ---
Subjective Remarks in no acute distress. complaining of pain to the left shoulder. no other complaints. Objective Vitals Vital Signs Date Time Temp Pulse Resp B/P (MAP) Pulse Ox O2 Delivery O2 Flow Rate FiO2 05/21/17 08:00 99.5 101 16 136/71 (92) 93 05/21/17 06:00 17 05/21/17 05:50 98.0 95 20 133/64 (87) 96 05/21/17 04:21 17 05/21/17 00:49 96.7 94 19 100/61 (74) 95 05/20/17 22:00 17 05/20/17 20:57 96.6 94 20 120/72 (88) 96 05/20/17 16:19 93 21 05/20/17 16:00 97.2 97 18 116/73 (87) 96 I/O 05/20/17 05/20/17 05/20/17 05/21/17 05/21/17 05/21/17 07:00 15:00 23:00 07:00 15:00 23:00 Intake Total 1400 ml 1000 ml 1440 ml Output Total 300 ml Balance 1100 ml 1000 ml 1440 ml Intake Oral 240 ml IV Total 1000 ml 1200 ml Other 1400 ml Output Estimated Blood Loss 300 ml # Bowel Movements 0 Result Diagram: 05/21/17 06 Imaging Last Impressions Shoulder X-Ray 05/20/17 0000 Signed Impressions: Service Date/Time: Saturday, May 20, 2017 10:22 - CONCLUSION: Anatomic alignment. Bigg Flores MD FACR Objective Remarks GENERAL: This is a well-nourished, well-developed patient, in no apparent distress. CARDIOVASCULAR: Regular rate and regular rhythm without murmurs, gallops, or rubs. RESPIRATORY: Clear to auscultation. Breath sounds equal bilaterally. No wheezes , rales, or rhonchi. GASTROINTESTINAL: Abdomen soft, non-tender, nondistended. Normal, active bowel sounds MUSCULOSKELETAL: left shoulder in clean dressing. NEURO: Alert & Oriented x4 to person, place, time, situation. Moves all ext x4 Medications and IVs Current Medications Lactated Ringer's 1,000 ml @ 30 mls/hr Q24H PRN IV SEE LABEL COMMENTS Last administered on 05/20/17t 06:00; Start 05/20/17 at 05:30; Stop 05/20/17 at 13:51 ; Status DC Sodium Chloride 500 ml @ 30 mls/hr [id number] PRN IV SEE LABEL COMMENTS; Start at 05:30; Stop 05/20/17 at 13:51; Status DC Metoprolol Tartrate (Lopressor) 25 mg MEDICAL EDUCATION MANAGER PRN PO SEE LABEL COMMENTS; Start 05/20/17 at 05:30; Stop 05/20/17 at 13:51; Status DC Povidone Iodine (Betadine 5% Antisepsis Kit) 1 applic MEDICAL EDUCATION MANAGER PRN EACH NARE SEE LABEL COMMENTS Last administered on 05/20/17 06:00; Start 05/20/17 at 05:30 ; Stop 05/20/17 at 13:51; Status DC Chlorhexidine Gluconate (Chlorhexidine 2% Cloth) 3 pack MEDICAL EDUCATION MANAGER PRN TOPICAL SEE LABEL COMMENTS Last administered on 05/20/17 06:00; Start 05/20/17 at 05:30 ; Stop 05/20/17 at 13:51; Status DC Insulin Human Regular (NovoLIN R INJ) See Protocol Table ... MEDICAL EDUCATION MANAGER PRN SQ SEE PROTOCOL TABLE; Start 05/20/17 at 05:30; Stop 05/20/17 at 13:51; Status DC Povidone Iodine (Betadine 7.5% Scrub) 1 applic ONCE TOPICAL Last administered on 05/20/17 06:00; Start 05/20/17 at 05:45; Stop 05/23/17 at 05:44 Cefazolin Sodium/ Dextrose 50 ml @ 100 mls/hr MEDICAL EDUCATION MANAGER IV ; Start 05/20/17 at 05:45; Stop 05/20/17 at 13:51; Status DC Tranexamic Acid 1000 mg/Sodium Chloride 110 ml @ 220 mls/hr ONCE IV Last administered on 05/20/17 06:44; Start 05/20/17 at 07:00; Stop 05/20/17 at 13:00 ; Status DC Tranexamic Acid 1000 mg/Sodium Chloride 110 ml @ 220 mls/hr ONCE IV Last administered on 05/20/17 09:44; Start 05/20/17 at 10:00; Stop 05/20/17 at 11:00 ; Status DC Cefazolin Sodium (Ancef Inj) 2,000 mg STK-MED ONCE .ROUTE Last administered on 05/18/17 06:44; Start 05/20/17 at 05:54; Stop 05/20/17 at 05:55; Status DC Dextrose/Sodium Chloride 1,000 ml @ 125 mls/hr Q8H IV Last administered on 04:17; Start 05/20/17 at 12:00 IV Flush (NS Flush) 2 ml UNSCH PRN IVF FLUSH AFTER USING IV ACCESS; Start 05/20 at 12:00 IV Flush (NS Flush) 2 ml BID IVF Last administered on 05/21/17 09:00; Start 05/20/17 at 21:00 Cefazolin Sodium 1000 mg/Sodium Chloride 100 ml @ 200 mls/hr Q6H IV Last administered on 05/21/17 01:45; Start 05/20/17 at 13:00; Stop 05/21/17 at 01:29 ; Status DC Miscellaneous Information (Post-op Orders (for Pharmacy)) STAT ONCE XX ; Start 05/20/17 at 12:00; Stop 05/20/17 at 12:01; Status DC Rivaroxaban (Xarelto) 10 mg Q24H PO Last administered on 05/21/17 09:55; Start 05/21/17 at 09:00 Miscellaneous Medication ([facility] [place] Pharmacy Information) ONCE ONCE XX ; Start 05/20/17 at 12:00; Stop 05/20/17 at 12:01; Status DC Acetaminophen/ Hydrocodone Bitart ([place] 5-325 Mg) 1 tab Q4H PRN PO PAIN LESS THAN 5 ON SCALE; Start 05/20/17 at 12:00 Acetaminophen/ Hydrocodone Bitart ([place] 5-325 Mg) 2 tab Q4H PRN PO PAIN SCALE 5 TO 10 Last administered on 05/21/17 09:55; Start 05/20/17 at 12:00 Tranexamic Acid 1000 mg/Sodium Chloride 110 ml @ 200 mls/hr ONCE ONCE IV ; Start 05/20/17 at 10:05; Stop 05/20/17 at 11:38; Status DC Ondansetron HCl (Zofran Inj) 4 mg Q6H PRN IVP NAUSEA OR VOMITING; Start at 12:00 Zolpidem Tartrate (Ambien) 5 mg HS PRN PO SLEEP; Start 05/20/17 at 21:00 Bisacodyl (Dulcolax Supp) 10 mg DAILY PRN [place] CONSTIPATION; Start 05/20/17 at 12:00 Naloxone HCl (Narcan Inj) 0.4 mg UNSCH PRN IV PUSH RESPIRATORY RATE LESS THAN 10; Start 05/20/17 at 12:00; Stop 05/22/17 at 11:59 Morphine Sulfate (Morphine 1 Mg/ ml SECOND TIME WORKER) 30 mg UNSCH IV Last administered on 04:21; Start 05/20/17 at 12:00; Stop 05/22/17 at 11:59 SECOND TIME WORKER Dosage Infused (Pha) 1 Q8HR .XX Last administered on 05/21/17 06:00; Start 05/20/17 at 14:00; Stop 05/22/17 at 13:59 Bupivacaine HCl (Marcaine Pf 0.5% Inj) 30 ml STK-MED ONCE .ROUTE ; Start at 10:27; Stop 05/20/17 at 10:28; Status DC Lisinopril (Prinivil) 20 mg HS PO Last administered on 05/20/17 20:24; Start 05/20/17 at 21:00 Paroxetine HCl (Paxil) 20 mg DAILY PO Last administered on 05/21/17 09:54; Start 05/21/17 at 09:00 Pravastatin Sodium (Pravachol) 20 mg DAILY PO Last administered on 05/21/17 09 :54; Start 05/21/17 at 09:00 Patient Own Medication PT OWN MED: Conjuga... DAILY PO ; Start 05/21/17 at 09:00 ; Status Future Hold Miscellaneous Information ALL NURSING DEPARTME... UNSCH PRN .XX SEE LABEL COMMENTS; Start 05/20/17 at 10:01; Stop 05/21/17 at 10:00; Status DC Magnesium Hydroxide (Milk Of Magnesia Liq) 30 ml BID PRN PO M[place] CONSTIPATION Last administered on 05/21/17 04:23; Start 05/20/17 at 23:45 A/P Assessment and Plan A/P - osteoarthritis of the left shoulder- s/p left shoulder arthroplasty- management per ortho. -hypertension/ dyslipidemia; resumed home meds -DVT prophylaxis; on Xarelto-per ortho Minouei,Mohammadreza MD May 21, 2017 11:56
--- NOTE | 2017-05-21 11:56 | HHI.PR ---
Subjective Remarks in no acute distress. complaining of pain to the left shoulder. no other complaints. Objective Vitals Vital Signs Date Time Temp Pulse Resp B/P (MAP) Pulse Ox O2 Delivery O2 Flow Rate FiO2 05/21/17 08:00 99.5 101 16 136/71 (92) 93 05/21/17 06:00 17 05/21/17 05:50 98.0 95 20 133/64 (87) 96 05/21/17 04:21 17 05/21/17 00:49 96.7 94 19 100/61 (74) 95 05/20/17 22:00 17 05/20/17 20:57 96.6 94 20 120/72 (88) 96 05/20/17 16:19 93 21 05/20/17 16:00 97.2 97 18 116/73 (87) 96 I/O 05/20/17 05/20/17 05/20/17 05/21/17 05/21/17 05/21/17 07:00 15:00 23:00 07:00 15:00 23:00 Intake Total 1400 ml 1000 ml 1440 ml Output Total 300 ml Balance 1100 ml 1000 ml 1440 ml Intake Oral 240 ml IV Total 1000 ml 1200 ml Other 1400 ml Output Estimated Blood Loss 300 ml # Bowel Movements 0 Result Diagram: 05/21/17 06 Imaging Last Impressions Shoulder X-Ray 05/20/17 0000 Signed Impressions: Service Date/Time: Saturday, May 20, 2017 10:22 - CONCLUSION: Anatomic alignment. Bigg Flores MD FACR Objective Remarks GENERAL: This is a well-nourished, well-developed patient, in no apparent distress. CARDIOVASCULAR: Regular rate and regular rhythm without murmurs, gallops, or rubs. RESPIRATORY: Clear to auscultation. Breath sounds equal bilaterally. No wheezes , rales, or rhonchi. GASTROINTESTINAL: Abdomen soft, non-tender, nondistended. Normal, active bowel sounds MUSCULOSKELETAL: left shoulder in clean dressing. NEURO: Alert & Oriented x4 to person, place, time, situation. Moves all ext x4 Medications and IVs Current Medications Lactated Ringer's 1,000 ml @ 30 mls/hr Q24H PRN IV SEE LABEL COMMENTS Last administered on 05/20/17t 06:00; Start 05/20/17 at 05:30; Stop 05/20/17 at 13:51 ; Status DC Sodium Chloride 500 ml @ 30 mls/hr [id number] PRN IV SEE LABEL COMMENTS; Start at 05:30; Stop 05/20/17 at 13:51; Status DC Metoprolol Tartrate (Lopressor) 25 mg COREMAKER EXPERIMENTAL PRN PO SEE LABEL COMMENTS; Start 05/20/17 at 05:30; Stop 05/20/17 at 13:51; Status DC Povidone Iodine (Betadine 5% Antisepsis Kit) 1 applic COREMAKER EXPERIMENTAL PRN EACH NARE SEE LABEL COMMENTS Last administered on 05/20/17 06:00; Start 05/20/17 at 05:30 ; Stop 05/20/17 at 13:51; Status DC Chlorhexidine Gluconate (Chlorhexidine 2% Cloth) 3 pack COREMAKER EXPERIMENTAL PRN TOPICAL SEE LABEL COMMENTS Last administered on 05/20/17 06:00; Start 05/20/17 at 05:30 ; Stop 05/20/17 at 13:51; Status DC Insulin Human Regular (NovoLIN R INJ) See Protocol Table ... COREMAKER EXPERIMENTAL PRN SQ SEE PROTOCOL TABLE; Start 05/20/17 at 05:30; Stop 05/20/17 at 13:51; Status DC Povidone Iodine (Betadine 7.5% Scrub) 1 applic ONCE TOPICAL Last administered on 05/20/17 06:00; Start 05/20/17 at 05:45; Stop 05/23/17 at 05:44 Cefazolin Sodium/ Dextrose 50 ml @ 100 mls/hr COREMAKER EXPERIMENTAL IV ; Start 05/20/17 at 05:45; Stop 05/20/17 at 13:51; Status DC Tranexamic Acid 1000 mg/Sodium Chloride 110 ml @ 220 mls/hr ONCE IV Last administered on 05/20/17 06:44; Start 05/20/17 at 07:00; Stop 05/20/17 at 13:00 ; Status DC Tranexamic Acid 1000 mg/Sodium Chloride 110 ml @ 220 mls/hr ONCE IV Last administered on 05/20/17 09:44; Start 05/20/17 at 10:00; Stop 05/20/17 at 11:00 ; Status DC Cefazolin Sodium (Ancef Inj) 2,000 mg STK-MED ONCE .ROUTE Last administered on 05/18/17 06:44; Start 05/20/17 at 05:54; Stop 05/20/17 at 05:55; Status DC Dextrose/Sodium Chloride 1,000 ml @ 125 mls/hr Q8H IV Last administered on 04:17; Start 05/20/17 at 12:00 IV Flush (NS Flush) 2 ml UNSCH PRN IVF FLUSH AFTER USING IV ACCESS; Start 05/20 at 12:00 IV Flush (NS Flush) 2 ml BID IVF Last administered on 05/21/17 09:00; Start 05/20/17 at 21:00 Cefazolin Sodium 1000 mg/Sodium Chloride 100 ml @ 200 mls/hr Q6H IV Last administered on 05/21/17 01:45; Start 05/20/17 at 13:00; Stop 05/21/17 at 01:29 ; Status DC Miscellaneous Information (Post-op Orders (for Pharmacy)) STAT ONCE XX ; Start 05/20/17 at 12:00; Stop 05/20/17 at 12:01; Status DC Rivaroxaban (Xarelto) 10 mg Q24H PO Last administered on 05/21/17 09:55; Start 05/21/17 at 09:00 Miscellaneous Medication ([facility] Information) ONCE ONCE XX ; Start 05/20/17 at 12:00; Stop 05/20/17 at 12:01; Status DC Acetaminophen/ Hydrocodone Bitart ([place] 5-325 Mg) 1 tab Q4H PRN PO PAIN LESS THAN 5 ON SCALE; Start 05/20/17 at 12:00 Acetaminophen/ Hydrocodone Bitart ([place] 5-325 Mg) 2 tab Q4H PRN PO PAIN SCALE 5 TO 10 Last administered on 05/21/17 09:55; Start 05/20/17 at 12:00 Tranexamic Acid 1000 mg/Sodium Chloride 110 ml @ 200 mls/hr ONCE ONCE IV ; Start 05/20/17 at 10:05; Stop 05/20/17 at 11:38; Status DC Ondansetron HCl (Zofran Inj) 4 mg Q6H PRN IVP NAUSEA OR VOMITING; Start at 12:00 Zolpidem Tartrate (Ambien) 5 mg HS PRN PO SLEEP; Start 05/20/17 at 21:00 Bisacodyl (Dulcolax Supp) 10 mg DAILY PRN RECTAL CONSTIPATION; Start 05/20/17 at 12:00 Naloxone HCl (Narcan Inj) 0.4 mg UNSCH PRN IV PUSH RESPIRATORY RATE LESS THAN 10; Start 05/20/17 at 12:00; Stop 05/22/17 at 11:59 Morphine Sulfate (Morphine 1 Mg/ ml BASS GUITAR TEACHER) 30 mg UNSCH IV Last administered on 04:21; Start 05/20/17 at 12:00; Stop 05/22/17 at 11:59 BASS GUITAR TEACHER Dosage Infused (Pha) 1 Q8HR .XX Last administered on 05/21/17 06:00; Start 05/20/17 at 14:00; Stop 05/22/17 at 13:59 Bupivacaine HCl (Marcaine Pf 0.5% Inj) 30 ml STK-MED ONCE .ROUTE ; Start at 10:27; Stop 05/20/17 at 10:28; Status DC Lisinopril (Prinivil) 20 mg HS PO Last administered on 05/20/17 20:24; Start 05/20/17 at 21:00 Paroxetine HCl (Paxil) 20 mg DAILY PO Last administered on 05/21/17 09:54; Start 05/21/17 at 09:00 Pravastatin Sodium (Pravachol) 20 mg DAILY PO Last administered on 05/21/17 09 :54; Start 05/21/17 at 09:00 Patient Own Medication PT OWN MED: Conjuga... DAILY PO ; Start 05/21/17 at 09:00 ; Status Future Hold Miscellaneous Information ALL NURSING DEPARTME... UNSCH PRN .XX SEE LABEL COMMENTS; Start 05/20/17 at 10:01; Stop 05/21/17 at 10:00; Status DC Magnesium Hydroxide (Milk Of Magnesia Liq) 30 ml BID PRN PO MILD CONSTIPATION Last administered on 05/21/17 04:23; Start 05/20/17 at 23:45 A/P Assessment and Plan A/P - osteoarthritis of the left shoulder- s/p left shoulder arthroplasty- management per ortho. -hypertension/ dyslipidemia; resumed home meds -DVT prophylaxis; on Xarelto-per ortho Minouei,Mohammadreza MD May 21, 2017 11:56
--- NOTE | 2017-05-21 11:56 | HHI.PR ---
Subjective Remarks in no acute distress. complaining of pain to the left shoulder. no other complaints. Objective Vitals Vital Signs Date Time Temp Pulse Resp B/P (MAP) Pulse Ox O2 Delivery O2 Flow Rate FiO2 05/21/17 08:00 99.5 101 16 136/71 (92) 93 05/21/17 06:00 17 05/21/17 05:50 98.0 95 20 133/64 (87) 96 05/21/17 04:21 17 05/21/17 00:49 96.7 94 19 100/61 (74) 95 05/20/17 22:00 17 05/20/17 20:57 96.6 94 20 120/72 (88) 96 05/20/17 16:19 93 21 05/20/17 16:00 97.2 97 18 116/73 (87) 96 I/O 05/20/17 05/20/17 05/20/17 05/21/17 05/21/17 05/21/17 07:00 15:00 23:00 07:00 15:00 23:00 Intake Total 1400 ml 1000 ml 1440 ml Output Total 300 ml Balance 1100 ml 1000 ml 1440 ml Intake Oral 240 ml IV Total 1000 ml 1200 ml Other 1400 ml Output Estimated Blood Loss 300 ml # Bowel Movements 0 Result Diagram: 05/21/17 06 Imaging Last Impressions Shoulder X-Ray 05/20/17 0000 Signed Impressions: Service Date/Time: Saturday, May 20, 2017 10:22 - CONCLUSION: Anatomic alignment. Bigg Flores MD FACR Objective Remarks GENERAL: This is a well-nourished, well-developed patient, in no apparent distress. CARDIOVASCULAR: Regular rate and regular rhythm without murmurs, gallops, or rubs. RESPIRATORY: Clear to auscultation. Breath sounds equal bilaterally. No wheezes , rales, or rhonchi. GASTROINTESTINAL: Abdomen soft, non-tender, nondistended. Normal, active bowel sounds MUSCULOSKELETAL: left shoulder in clean dressing. NEURO: Alert & Oriented x4 to person, place, time, situation. Moves all ext x4 Medications and IVs Current Medications Lactated Ringer's 1,000 ml @ 30 mls/hr Q24H PRN IV SEE LABEL COMMENTS Last administered on 05/20/17t 06:00; Start 05/20/17 at 05:30; Stop 05/20/17 at 13:51 ; Status DC Sodium Chloride 500 ml @ 30 mls/hr [id number] PRN IV SEE LABEL COMMENTS; Start at 05:30; Stop 05/20/17 at 13:51; Status DC Metoprolol Tartrate (Lopressor) 25 mg TECHNICAL SUPPORT ASSOCIATE PRN PO SEE LABEL COMMENTS; Start 05/20/17 at 05:30; Stop 05/20/17 at 13:51; Status DC Povidone Iodine (Betadine 5% Antisepsis Kit) 1 applic TECHNICAL SUPPORT ASSOCIATE PRN EACH NARE SEE LABEL COMMENTS Last administered on 05/20/17 06:00; Start 05/20/17 at 05:30 ; Stop 05/20/17 at 13:51; Status DC Chlorhexidine Gluconate (Chlorhexidine 2% Cloth) 3 pack TECHNICAL SUPPORT ASSOCIATE PRN TOPICAL SEE LABEL COMMENTS Last administered on 05/20/17 06:00; Start 05/20/17 at 05:30 ; Stop 05/20/17 at 13:51; Status DC Insulin Human Regular (NovoLIN R INJ) See Protocol Table ... TECHNICAL SUPPORT ASSOCIATE PRN SQ SEE PROTOCOL TABLE; Start 05/20/17 at 05:30; Stop 05/20/17 at 13:51; Status DC Povidone Iodine (Betadine 7.5% Scrub) 1 applic ONCE TOPICAL Last administered on 05/20/17 06:00; Start 05/20/17 at 05:45; Stop 05/23/17 at 05:44 Cefazolin Sodium/ Dextrose 50 ml @ 100 mls/hr TECHNICAL SUPPORT ASSOCIATE IV ; Start 05/20/17 at 05:45; Stop 05/20/17 at 13:51; Status DC Tranexamic Acid 1000 mg/Sodium Chloride 110 ml @ 220 mls/hr ONCE IV Last administered on 05/20/17 06:44; Start 05/20/17 at 07:00; Stop 05/20/17 at 13:00 ; Status DC Tranexamic Acid 1000 mg/Sodium Chloride 110 ml @ 220 mls/hr ONCE IV Last administered on 05/20/17 09:44; Start 05/20/17 at 10:00; Stop 05/20/17 at 11:00 ; Status DC Cefazolin Sodium (Ancef Inj) 2,000 mg STK-MED ONCE .ROUTE Last administered on 05/18/17 06:44; Start 05/20/17 at 05:54; Stop 05/20/17 at 05:55; Status DC Dextrose/Sodium Chloride 1,000 ml @ 125 mls/hr Q8H IV Last administered on 04:17; Start 05/20/17 at 12:00 IV Flush (NS Flush) 2 ml UNSCH PRN IVF FLUSH AFTER USING IV ACCESS; Start 05/20 at 12:00 IV Flush (NS Flush) 2 ml BID IVF Last administered on 05/21/17 09:00; Start 05/20/17 at 21:00 Cefazolin Sodium 1000 mg/Sodium Chloride 100 ml @ 200 mls/hr Q6H IV Last administered on 05/21/17 01:45; Start 05/20/17 at 13:00; Stop 05/21/17 at 01:29 ; Status DC Miscellaneous Information (Post-op Orders (for Pharmacy)) STAT ONCE XX ; Start 05/20/17 at 12:00; Stop 05/20/17 at 12:01; Status DC Rivaroxaban (Xarelto) 10 mg Q24H PO Last administered on 05/21/17 09:55; Start 05/21/17 at 09:00 Miscellaneous Medication ([facility] [place] [facility] Information) ONCE ONCE XX ; Start 05/20/17 at 12:00; Stop 05/20/17 at 12:01; Status DC Acetaminophen/ Hydrocodone Bitart ([place] 5-325 Mg) 1 tab Q4H PRN PO PAIN LESS THAN 5 ON SCALE; Start 05/20/17 at 12:00 Acetaminophen/ Hydrocodone Bitart ([place] 5-325 Mg) 2 tab Q4H PRN PO PAIN SCALE 5 TO 10 Last administered on 05/21/17 09:55; Start 05/20/17 at 12:00 Tranexamic Acid 1000 mg/Sodium Chloride 110 ml @ 200 mls/hr ONCE ONCE IV ; Start 05/20/17 at 10:05; Stop 05/20/17 at 11:38; Status DC Ondansetron HCl (Zofran Inj) 4 mg Q6H PRN IVP NAUSEA OR VOMITING; Start at 12:00 Zolpidem Tartrate (Ambien) 5 mg HS PRN PO SLEEP; Start 05/20/17 at 21:00 Bisacodyl (Dulcolax Supp) 10 mg DAILY PRN RECTAL CONSTIPATION; Start 05/20/17 at 12:00 Naloxone HCl (Narcan Inj) 0.4 mg UNSCH PRN IV PUSH RESPIRATORY RATE LESS THAN 10; Start 05/20/17 at 12:00; Stop 05/22/17 at 11:59 Morphine Sulfate (Morphine 1 Mg/ ml MANAGER COMPANY) 30 mg UNSCH IV Last administered on 04:21; Start 05/20/17 at 12:00; Stop 05/22/17 at 11:59 MANAGER COMPANY Dosage Infused (Pha) 1 Q8HR .XX Last administered on 05/21/17 06:00; Start 05/20/17 at 14:00; Stop 05/22/17 at 13:59 Bupivacaine HCl (Marcaine Pf 0.5% Inj) 30 ml STK-MED ONCE .ROUTE ; Start at 10:27; Stop 05/20/17 at 10:28; Status DC Lisinopril (Prinivil) 20 mg HS PO Last administered on 05/20/17 20:24; Start 05/20/17 at 21:00 Paroxetine HCl (Paxil) 20 mg DAILY PO Last administered on 05/21/17 09:54; Start 05/21/17 at 09:00 Pravastatin Sodium (Pravachol) 20 mg DAILY PO Last administered on 05/21/17 09 :54; Start 05/21/17 at 09:00 Patient Own Medication PT OWN MED: Conjuga... DAILY PO ; Start 05/21/17 at 09:00 ; Status Future Hold Miscellaneous Information ALL NURSING DEPARTME... UNSCH PRN .XX SEE LABEL COMMENTS; Start 05/20/17 at 10:01; Stop 05/21/17 at 10:00; Status DC Magnesium Hydroxide (Milk Of Magnesia Liq) 30 ml BID PRN PO MILD CONSTIPATION Last administered on 05/21/17 04:23; Start 05/20/17 at 23:45 A/P Assessment and Plan A/P - osteoarthritis of the left shoulder- s/p left shoulder arthroplasty- management per ortho. -hypertension/ dyslipidemia; resumed home meds -DVT prophylaxis; on Xarelto-per ortho Minouei,Mohammadreza MD May 21, 2017 11:56
[2017-05-21 16:00] VITALS: BP 151/74; PULSE 97; RESP 16; TEMP 99.6; O2SAT 95
[2017-05-21] MEDS: LISINOPRIL 20 MG TAB PO SCH (19:26)
[2017-05-21 19:47] VITALS: O2SAT 95
[2017-05-21 20:00] VITALS: BP 150/71; PULSE 99; RESP 17; TEMP 100; O2SAT 95
[2017-05-21] MEDS ORDERED: PROCHLORPERAZINE INJ 10 MG/2 ML VIAL IV PUSH ONE (20:45)
[2017-05-21] MEDS ORDERED: DEXT 5%-NACL 0.45% 500 ML INJ 500 ML IV ONE (20:45)
[2017-05-22] VITALS (7 sets, daily range): BP systolic 145–161; BP diastolic 67–81; PULSE 69–100; RESP 16–18; TEMP 98.1–100; O2SAT 90–98
[2017-05-22] MEDS: PARoxetine HCL 20 MG TAB PO SCH (08:52)
[2017-05-22] MEDS: RIVAROXABAN 10 MG TAB PO SCH (08:53)
[2017-05-22] MEDS: PRAVASTATIN SOD 20 MG TAB PO SCH (08:53)
[2017-05-22] MEDS: SODIUM CHLORIDE 0.9% FLUSH 5 ML FLUSH IVF SCH ×2 (08:53→20:27)
[2017-05-22] MEDS: DEXT 5%-NACL 0.45% 1000 ML INJ 1,000 ML IV SCH ×2 (12:00→20:00)
--- NOTE | 2017-05-22 12:02 | HHI.PR ---
Subjective Remarks in no distress. slept better last night. low garde fever last evening. minimal cough and no urinary complaints. no other complaints. Objective Vitals Vital Signs Date Time Temp Pulse Resp B/P (MAP) Pulse Ox O2 Delivery O2 Flow Rate FiO2 05/22/17 09:44 96 05/22/17 08:00 98.1 93 18 145/69 (94) 92 05/22/17 06:14 99.0 05/22/17 00:00 100.0 100 16 152/72 (98) 94 05/21/17 20:00 100.0 99 17 150/71 (97) 95 05/21/17 19:47 95 05/21/17 16:00 99.6 97 16 151/74 (99) 95 I/O 05/21/17 05/21/17 05/21/17 05/22/17 05/22/17 05/22/17 07:00 15:00 23:00 07:00 15:00 23:00 Intake Total 1440 ml 1460 ml 360 ml Balance 1440 ml 1460 ml 360 ml Intake Oral 240 ml 960 ml 360 ml IV Total 1200 ml 500 ml # Voids 4 1 # Bowel Movements 0 0 Result Diagram: 05/21/17 0622 Imaging Last Impressions Shoulder X-Ray 05/20/17 0000 Signed Impressions: Service Date/Time: Saturday, May 20, 2017 10:22 - CONCLUSION: Anatomic alignment. Bigg Flores MD FACR Objective Remarks GENERAL: This is a well-nourished, well-developed patient, in no apparent distress. CARDIOVASCULAR: Regular rate and regular rhythm without murmurs, gallops, or rubs. RESPIRATORY: Clear to auscultation. Breath sounds equal bilaterally. No wheezes , rales, or rhonchi. GASTROINTESTINAL: Abdomen soft, non-tender, nondistended. Normal, active bowel sounds MUSCULOSKELETAL: left shoulder in clean dressing. NEURO: Alert & Oriented x4 to person, place, time, situation. Moves all ext x4 Medications and IVs Current Medications Lactated Ringer's 1,000 ml @ 30 mls/hr Q24H PRN IV SEE LABEL COMMENTS Last administered on 05/20/17t 06:00; Start 05/20/17 at 05:30; Stop 05/20/17 at 13:51 ; Status DC Sodium Chloride 500 ml @ 30 mls/hr [id number] PRN IV SEE LABEL COMMENTS; Start at 05:30; Stop 05/20/17 at 13:51; Status DC Metoprolol Tartrate (Lopressor) 25 mg METHODS ENGINEER PRN PO SEE LABEL COMMENTS; Start 05/20/17 at 05:30; Stop 05/20/17 at 13:51; Status DC Povidone Iodine (Betadine 5% Antisepsis Kit) 1 applic METHODS ENGINEER PRN EACH NARE SEE LABEL COMMENTS Last administered on 05/20/17 06:00; Start 05/20/17 at 05:30 ; Stop 05/20/17 at 13:51; Status DC Chlorhexidine Gluconate (Chlorhexidine 2% Cloth) 3 pack METHODS ENGINEER PRN TOPICAL SEE LABEL COMMENTS Last administered on 05/20/17 06:00; Start 05/20/17 at 05:30 ; Stop 05/20/17 at 13:51; Status DC Insulin Human Regular (NovoLIN R INJ) See Protocol Table ... METHODS ENGINEER PRN SQ SEE PROTOCOL TABLE; Start 05/20/17 at 05:30; Stop 05/20/17 at 13:51; Status DC Povidone Iodine (Betadine 7.5% Scrub) 1 applic ONCE TOPICAL Last administered on 05/20/17 06:00; Start 05/20/17 at 05:45; Stop 05/23/17 at 05:44 Cefazolin Sodium/ Dextrose 50 ml @ 100 mls/hr METHODS ENGINEER IV ; Start 05/20/17 at 05:45; Stop 05/20/17 at 13:51; Status DC Tranexamic Acid 1000 mg/Sodium Chloride 110 ml @ 220 mls/hr ONCE IV Last administered on 05/20/17 06:44; Start 05/20/17 at 07:00; Stop 05/20/17 at 13:00 ; Status DC Tranexamic Acid 1000 mg/Sodium Chloride 110 ml @ 220 mls/hr ONCE IV Last administered on 05/20/17 09:44; Start 05/20/17 at 10:00; Stop 05/20/17 at 11:00 ; Status DC Cefazolin Sodium (Ancef Inj) 2,000 mg STK-MED ONCE .ROUTE Last administered on 05/18/17 06:44; Start 05/20/17 at 05:54; Stop 05/20/17 at 05:55; Status DC Dextrose/Sodium Chloride 1,000 ml @ 125 mls/hr Q8H IV Last administered on 04:17; Start 05/20/17 at 12:00 IV Flush (NS Flush) 2 ml UNSCH PRN IVF FLUSH AFTER USING IV ACCESS; Start 05/20 at 12:00 IV Flush (NS Flush) 2 ml BID IVF Last administered on 05/22/17 08:53; Start 05/20/17 at 21:00 Cefazolin Sodium 1000 mg/Sodium Chloride 100 ml @ 200 mls/hr Q6H IV Last administered on 05/21/17 01:45; Start 05/20/17 at 13:00; Stop 05/21/17 at 01:29 ; Status DC Miscellaneous Information (Post-op Orders (for Pharmacy)) STAT ONCE XX ; Start 05/20/17 at 12:00; Stop 05/20/17 at 12:01; Status DC Rivaroxaban (Xarelto) 10 mg Q24H PO Last administered on 05/22/17 08:53; Start 05/21/17 at 09:00 Miscellaneous Medication ([facility] [place] [facility]) ONCE ONCE XX ; Start 05/20/17 at 12:00; Stop 05/20/17 at 12:01; Status DC Acetaminophen/ Hydrocodone Bitart ([place] 5-325 Mg) 1 tab Q4H PRN PO PAIN LESS THAN 5 ON SCALE Last administered on 05/22/17 08:52; Start 05/20/17 at 12:00 Acetaminophen/ Hydrocodone Bitart ([place] 5-325 Mg) 2 tab Q4H PRN PO PAIN SCALE 5 TO 10 Last administered on 05/21/17 23:34; Start 05/20/17 at 12:00 Tranexamic Acid 1000 mg/Sodium Chloride 110 ml @ 200 mls/hr ONCE ONCE IV ; Start 05/20/17 at 10:05; Stop 05/20/17 at 11:38; Status DC Ondansetron HCl (Zofran Inj) 4 mg Q6H PRN IVP NAUSEA OR VOMITING Last administered on 05/21/17 16:41; Start 05/20/17 at 12:00 Zolpidem Tartrate (Ambien) 5 mg HS PRN PO SLEEP; Start 05/20/17 at 21:00 Bisacodyl (Dulcolax Supp) 10 mg DAILY PRN RECTAL SEVERE CONSTIPATION; Start at 12:00 Naloxone HCl (Narcan Inj) 0.4 mg UNSCH PRN IV PUSH RESPIRATORY RATE LESS THAN 10; Start 05/20/17 at 12:00; Stop 05/22/17 at 11:59 Morphine Sulfate (Morphine 1 Mg/ ml EMBEDDED SOFTWARE MANAGER) 30 mg UNSCH IV Last administered on 04:21; Start 05/20/17 at 12:00; Stop 05/22/17 at 11:59 EMBEDDED SOFTWARE MANAGER Dosage Infused (Pha) 1 Q8HR .XX Last administered on 05/21/17 06:00; Start 05/20/17 at 14:00; Stop 05/22/17 at 13:59 Bupivacaine HCl (Marcaine Pf 0.5% Inj) 30 ml STK-MED ONCE .ROUTE ; Start at 10:27; Stop 05/20/17 at 10:28; Status DC Lisinopril (Prinivil) 20 mg HS PO Last administered on 05/21/17 19:26; Start 05/20/17 at 21:00 Paroxetine HCl (Paxil) 20 mg DAILY PO Last administered on 05/22/17 08:52; Start 05/21/17 at 09:00 Pravastatin Sodium (Pravachol) 20 mg DAILY PO Last administered on 05/22/17 08 :53; Start 05/21/17 at 09:00 Patient Own Medication PT OWN MED: Conjuga... DAILY PO ; Start 05/21/17 at 09:00 ; Status Future Hold Miscellaneous Information ALL NURSING DEPARTME... UNSCH PRN .XX SEE LABEL COMMENTS; Start 05/20/17 at 10:01; Stop 05/21/17 at 10:00; Status DC Magnesium Hydroxide (Milk Of Magnesia Liq) 30 ml BID PRN PO MILD CONSTIPATION Last administered on 05/21/17 19:27; Start 05/20/17 at 23:45 Dextrose/Sodium Chloride 500 ml @ 500 mls/hr BOLUS ONCE IV Last administered on 05/21/17 20:45; Start 11/2/17 at 20:45; Stop 05/21/17 at 21:44; Status DC Prochlorperazine Edisylate (Compazine Inj) 5 mg ONCE ONCE IV PUSH Last administered on 05/21/17t 20:49; Start 05/21/17 at 20:45; Stop 05/21/17 at 20:46 ; Status DC A/P Assessment and Plan A/P - osteoarthritis of the left shoulder- s/p left shoulder arthroplasty- management per ortho. -hypertension/ dyslipidemia; resumed home meds -fever- post-op; will monitor. -DVT prophylaxis; on Xarelto-per ortho Kerrie Khalil MD May 22, 2017 12:02
--- NOTE | 2017-05-22 12:02 | HHI.PR ---
Subjective Remarks in no distress. slept better last night. low garde fever last evening. minimal cough and no urinary complaints. no other complaints. Objective Vitals Vital Signs Date Time Temp Pulse Resp B/P (MAP) Pulse Ox O2 Delivery O2 Flow Rate FiO2 05/22/17 09:44 96 05/22/17 08:00 98.1 93 18 145/69 (94) 92 05/22/17 06:14 99.0 05/22/17 00:00 100.0 100 16 152/72 (98) 94 05/21/17 20:00 100.0 99 17 150/71 (97) 95 05/21/17 19:47 95 05/21/17 16:00 99.6 97 16 151/74 (99) 95 I/O 05/21/17 05/21/17 05/21/17 05/22/17 05/22/17 05/22/17 07:00 15:00 23:00 07:00 15:00 23:00 Intake Total 1440 ml 1460 ml 360 ml Balance 1440 ml 1460 ml 360 ml Intake Oral 240 ml 960 ml 360 ml IV Total 1200 ml 500 ml # Voids 4 1 # Bowel Movements 0 0 Result Diagram: 05/21/17 0622 Imaging Last Impressions Shoulder X-Ray 05/20/17 0000 Signed Impressions: Service Date/Time: Saturday, May 20, 2017 10:22 - CONCLUSION: Anatomic alignment. Bigg Flores MD FACR Objective Remarks GENERAL: This is a well-nourished, well-developed patient, in no apparent distress. CARDIOVASCULAR: Regular rate and regular rhythm without murmurs, gallops, or rubs. RESPIRATORY: Clear to auscultation. Breath sounds equal bilaterally. No wheezes , rales, or rhonchi. GASTROINTESTINAL: Abdomen soft, non-tender, nondistended. Normal, active bowel sounds MUSCULOSKELETAL: left shoulder in clean dressing. NEURO: Alert & Oriented x4 to person, place, time, situation. Moves all ext x4 Medications and IVs Current Medications Lactated Ringer's 1,000 ml @ 30 mls/hr Q24H PRN IV SEE LABEL COMMENTS Last administered on 05/20/17t 06:00; Start 05/20/17 at 05:30; Stop 05/20/17 at 13:51 ; Status DC Sodium Chloride 500 ml @ 30 mls/hr [id number] PRN IV SEE LABEL COMMENTS; Start at 05:30; Stop 05/20/17 at 13:51; Status DC Metoprolol Tartrate (Lopressor) 25 mg RETAIL ASSOCIATE PRN PO SEE LABEL COMMENTS; Start 05/20/17 at 05:30; Stop 05/20/17 at 13:51; Status DC Povidone Iodine (Betadine 5% Antisepsis Kit) 1 applic RETAIL ASSOCIATE PRN EACH NARE SEE LABEL COMMENTS Last administered on 05/20/17 06:00; Start 05/20/17 at 05:30 ; Stop 05/20/17 at 13:51; Status DC Chlorhexidine Gluconate (Chlorhexidine 2% Cloth) 3 pack RETAIL ASSOCIATE PRN TOPICAL SEE LABEL COMMENTS Last administered on 05/20/17 06:00; Start 05/20/17 at 05:30 ; Stop 05/20/17 at 13:51; Status DC Insulin Human Regular (NovoLIN R INJ) See Protocol Table ... RETAIL ASSOCIATE PRN SQ SEE PROTOCOL TABLE; Start 05/20/17 at 05:30; Stop 05/20/17 at 13:51; Status DC Povidone Iodine (Betadine 7.5% Scrub) 1 applic ONCE TOPICAL Last administered on 05/20/17 06:00; Start 05/20/17 at 05:45; Stop 05/23/17 at 05:44 Cefazolin Sodium/ Dextrose 50 ml @ 100 mls/hr RETAIL ASSOCIATE IV ; Start 05/20/17 at 05:45; Stop 05/20/17 at 13:51; Status DC Tranexamic Acid 1000 mg/Sodium Chloride 110 ml @ 220 mls/hr ONCE IV Last administered on 05/20/17 06:44; Start 05/20/17 at 07:00; Stop 05/20/17 at 13:00 ; Status DC Tranexamic Acid 1000 mg/Sodium Chloride 110 ml @ 220 mls/hr ONCE IV Last administered on 05/20/17 09:44; Start 05/20/17 at 10:00; Stop 05/20/17 at 11:00 ; Status DC Cefazolin Sodium (Ancef Inj) 2,000 mg STK-MED ONCE .ROUTE Last administered on 05/18/17 06:44; Start 05/20/17 at 05:54; Stop 05/20/17 at 05:55; Status DC Dextrose/Sodium Chloride 1,000 ml @ 125 mls/hr Q8H IV Last administered on 04:17; Start 05/20/17 at 12:00 IV Flush (NS Flush) 2 ml UNSCH PRN IVF FLUSH AFTER USING IV ACCESS; Start 05/20 at 12:00 IV Flush (NS Flush) 2 ml BID IVF Last administered on 05/22/17 08:53; Start 05/20/17 at 21:00 Cefazolin Sodium 1000 mg/Sodium Chloride 100 ml @ 200 mls/hr Q6H IV Last administered on 05/21/17 01:45; Start 05/20/17 at 13:00; Stop 05/21/17 at 01:29 ; Status DC Miscellaneous Information (Post-op Orders (for Pharmacy)) STAT ONCE XX ; Start 05/20/17 at 12:00; Stop 05/20/17 at 12:01; Status DC Rivaroxaban (Xarelto) 10 mg Q24H PO Last administered on 05/22/17 08:53; Start 05/21/17 at 09:00 Miscellaneous Medication [place] [place] [facility] [place] ONCE ONCE XX ; Start 05/20/17 at 12:00; Stop 05/20/17 at 12:01; Status DC Acetaminophen/ Hydrocodone Bitart ([place] 5-325 Mg) 1 tab Q4H PRN PO PAIN LESS THAN 5 ON SCALE Last administered on 05/22/17 08:52; Start 05/20/17 at 12:00 Acetaminophen/ Hydrocodone Bitart ([place] 5-325 Mg) 2 tab Q4H PRN PO PAIN SCALE 5 TO 10 Last administered on 05/21/17 23:34; Start 05/20/17 at 12:00 Tranexamic Acid 1000 mg/Sodium Chloride 110 ml @ 200 mls/hr ONCE ONCE IV ; Start 05/20/17 at 10:05; Stop 05/20/17 at 11:38; Status DC Ondansetron HCl (Zofran Inj) 4 mg Q6H PRN IVP NAUSEA OR VOMITING Last administered on 05/21/17 16:41; Start 05/20/17 at 12:00 Zolpidem Tartrate (Ambien) 5 mg HS PRN PO SLEEP; Start 05/20/17 at 21:00 Bisacodyl (Dulcolax Supp) 10 mg DAILY PRN RECTAL SEVERE CONSTIPATION; Start at 12:00 Naloxone HCl (Narcan Inj) 0.4 mg UNSCH PRN IV PUSH RESPIRATORY RATE LESS THAN 10; Start 05/20/17 at 12:00; Stop 05/22/17 at 11:59 Morphine Sulfate (Morphine 1 Mg/ ml AUDIO VISUAL TECHNICIAN) 30 mg UNSCH IV Last administered on 04:21; Start 05/20/17 at 12:00; Stop 05/22/17 at 11:59 AUDIO VISUAL TECHNICIAN Dosage Infused (Pha) 1 Q8HR .XX Last administered on 05/21/17 06:00; Start 05/20/17 at 14:00; Stop 05/22/17 at 13:59 Bupivacaine HCl (Marcaine Pf 0.5% Inj) 30 ml STK-MED ONCE .ROUTE ; Start at 10:27; Stop 05/20/17 at 10:28; Status DC Lisinopril (Prinivil) 20 mg HS PO Last administered on 05/21/17 19:26; Start 05/20/17 at 21:00 Paroxetine HCl (Paxil) 20 mg DAILY PO Last administered on 05/22/17 08:52; Start 05/21/17 at 09:00 Pravastatin Sodium (Pravachol) 20 mg DAILY PO Last administered on 05/22/17 08 :53; Start 05/21/17 at 09:00 Patient Own Medication PT OWN MED: Conjuga... DAILY PO ; Start 05/21/17 at 09:00 ; Status Future Hold Miscellaneous Information ALL NURSING DEPARTME... UNSCH PRN .XX SEE LABEL COMMENTS; Start 05/20/17 at 10:01; Stop 05/21/17 at 10:00; Status DC Magnesium Hydroxide (Milk Of Magnesia Liq) 30 ml BID PRN PO MILD CONSTIPATION Last administered on 05/21/17 19:27; Start 05/20/17 at 23:45 Dextrose/Sodium Chloride 500 ml @ 500 mls/hr BOLUS ONCE IV Last administered on 05/21/17 20:45; Start 11/2/17 at 20:45; Stop 05/21/17 at 21:44; Status DC Prochlorperazine Edisylate (Compazine Inj) 5 mg ONCE ONCE IV PUSH Last administered on 05/21/17t 20:49; Start 05/21/17 at 20:45; Stop 05/21/17 at 20:46 ; Status DC A/P Assessment and Plan A/P - osteoarthritis of the left shoulder- s/p left shoulder arthroplasty- management per ortho. -hypertension/ dyslipidemia; resumed home meds -fever- post-op; will monitor. -DVT prophylaxis; on Xarelto-per ortho Kerrie Khalil MD May 22, 2017 12:02
--- NOTE | 2017-05-22 12:02 | HHI.PR ---
Subjective Remarks in no distress. slept better last night. low garde fever last evening. minimal cough and no urinary complaints. no other complaints. Objective Vitals Vital Signs Date Time Temp Pulse Resp B/P (MAP) Pulse Ox O2 Delivery O2 Flow Rate FiO2 05/22/17 09:44 96 05/22/17 08:00 98.1 93 18 145/69 (94) 92 05/22/17 06:14 99.0 05/22/17 00:00 100.0 100 16 152/72 (98) 94 05/21/17 20:00 100.0 99 17 150/71 (97) 95 05/21/17 19:47 95 05/21/17 16:00 99.6 97 16 151/74 (99) 95 I/O 05/21/17 05/21/17 05/21/17 05/22/17 05/22/17 05/22/17 07:00 15:00 23:00 07:00 15:00 23:00 Intake Total 1440 ml 1460 ml 360 ml Balance 1440 ml 1460 ml 360 ml Intake Oral 240 ml 960 ml 360 ml IV Total 1200 ml 500 ml # Voids 4 1 # Bowel Movements 0 0 Result Diagram: 05/21/17 0622 Imaging Last Impressions Shoulder X-Ray 05/20/17 0000 Signed Impressions: Service Date/Time: Saturday, May 20, 2017 10:22 - CONCLUSION: Anatomic alignment. Bigg Flores MD FACR Objective Remarks GENERAL: This is a well-nourished, well-developed patient, in no apparent distress. CARDIOVASCULAR: Regular rate and regular rhythm without murmurs, gallops, or rubs. RESPIRATORY: Clear to auscultation. Breath sounds equal bilaterally. No wheezes , rales, or rhonchi. GASTROINTESTINAL: Abdomen soft, non-tender, nondistended. Normal, active bowel sounds MUSCULOSKELETAL: left shoulder in clean dressing. NEURO: Alert & Oriented x4 to person, place, time, situation. Moves all ext x4 Medications and IVs Current Medications Lactated Ringer's 1,000 ml @ 30 mls/hr Q24H PRN IV SEE LABEL COMMENTS Last administered on 05/20/17t 06:00; Start 05/20/17 at 05:30; Stop 05/20/17 at 13:51 ; Status DC Sodium Chloride 500 ml @ 30 mls/hr [id number] PRN IV SEE LABEL COMMENTS; Start at 05:30; Stop 05/20/17 at 13:51; Status DC Metoprolol Tartrate (Lopressor) 25 mg ORACLE CONSULTANT PRN PO SEE LABEL COMMENTS; Start 05/20/17 at 05:30; Stop 05/20/17 at 13:51; Status DC Povidone Iodine (Betadine 5% Antisepsis Kit) 1 applic ORACLE CONSULTANT PRN EACH NARE SEE LABEL COMMENTS Last administered on 05/20/17 06:00; Start 05/20/17 at 05:30 ; Stop 05/20/17 at 13:51; Status DC Chlorhexidine Gluconate (Chlorhexidine 2% Cloth) 3 pack ORACLE CONSULTANT PRN TOPICAL SEE LABEL COMMENTS Last administered on 05/20/17 06:00; Start 05/20/17 at 05:30 ; Stop 05/20/17 at 13:51; Status DC Insulin Human Regular (NovoLIN R INJ) See Protocol Table ... ORACLE CONSULTANT PRN SQ SEE PROTOCOL TABLE; Start 05/20/17 at 05:30; Stop 05/20/17 at 13:51; Status DC Povidone Iodine (Betadine 7.5% Scrub) 1 applic ONCE TOPICAL Last administered on 05/20/17 06:00; Start 05/20/17 at 05:45; Stop 05/23/17 at 05:44 Cefazolin Sodium/ Dextrose 50 ml @ 100 mls/hr ORACLE CONSULTANT IV ; Start 05/20/17 at 05:45; Stop 05/20/17 at 13:51; Status DC Tranexamic Acid 1000 mg/Sodium Chloride 110 ml @ 220 mls/hr ONCE IV Last administered on 05/20/17 06:44; Start 05/20/17 at 07:00; Stop 05/20/17 at 13:00 ; Status DC Tranexamic Acid 1000 mg/Sodium Chloride 110 ml @ 220 mls/hr ONCE IV Last administered on 05/20/17 09:44; Start 05/20/17 at 10:00; Stop 05/20/17 at 11:00 ; Status DC Cefazolin Sodium (Ancef Inj) 2,000 mg STK-MED ONCE .ROUTE Last administered on 05/18/17 06:44; Start 05/20/17 at 05:54; Stop 05/20/17 at 05:55; Status DC Dextrose/Sodium Chloride 1,000 ml @ 125 mls/hr Q8H IV Last administered on 04:17; Start 05/20/17 at 12:00 IV Flush (NS Flush) 2 ml UNSCH PRN IVF FLUSH AFTER USING IV ACCESS; Start 05/20 at 12:00 IV Flush (NS Flush) 2 ml BID IVF Last administered on 05/22/17 08:53; Start 05/20/17 at 21:00 Cefazolin Sodium 1000 mg/Sodium Chloride 100 ml @ 200 mls/hr Q6H IV Last administered on 05/21/17 01:45; Start 05/20/17 at 13:00; Stop 05/21/17 at 01:29 ; Status DC Miscellaneous Information (Post-op Orders (for Pharmacy)) STAT ONCE XX ; Start 05/20/17 at 12:00; Stop 05/20/17 at 12:01; Status DC Rivaroxaban (Xarelto) 10 mg Q24H PO Last administered on 05/22/17 08:53; Start 05/21/17 at 09:00 Miscellaneous Medication [place] [place] [facility] [place] ONCE ONCE XX ; Start 05/20/17 at 12:00; Stop 05/20/17 at 12:01; Status DC Acetaminophen/ Hydrocodone Bitart ([place] 5-325 Mg) 1 tab Q4H PRN PO PAIN LESS THAN 5 ON SCALE Last administered on 05/22/17 08:52; Start 05/20/17 at 12:00 Acetaminophen/ Hydrocodone Bitart ([place] 5-325 Mg) 2 tab Q4H PRN PO PAIN SCALE 5 TO 10 Last administered on 05/21/17 23:34; Start 05/20/17 at 12:00 Tranexamic Acid 1000 mg/Sodium Chloride 110 ml @ 200 mls/hr ONCE ONCE IV ; Start 05/20/17 at 10:05; Stop 05/20/17 at 11:38; Status DC Ondansetron HCl (Zofran Inj) 4 mg Q6H PRN IVP NAUSEA OR VOMITING Last administered on 05/21/17 16:41; Start 05/20/17 at 12:00 Zolpidem Tartrate (Ambien) 5 mg HS PRN PO SLEEP; Start 05/20/17 at 21:00 Bisacodyl (Dulcolax Supp) 10 mg DAILY PRN RECTAL SEVERE CONSTIPATION; Start at 12:00 Naloxone HCl (Narcan Inj) 0.4 mg UNSCH PRN IV PUSH RESPIRATORY RATE LESS THAN 10; Start 05/20/17 at 12:00; Stop 05/22/17 at 11:59 Morphine Sulfate (Morphine 1 Mg/ ml SCHOOL COUNSELLOR) 30 mg UNSCH IV Last administered on 04:21; Start 05/20/17 at 12:00; Stop 05/22/17 at 11:59 SCHOOL COUNSELLOR Dosage Infused (Pha) 1 Q8HR .XX Last administered on 05/21/17 06:00; Start 05/20/17 at 14:00; Stop 05/22/17 at 13:59 Bupivacaine HCl (Marcaine Pf 0.5% Inj) 30 ml STK-MED ONCE .ROUTE ; Start at 10:27; Stop 05/20/17 at 10:28; Status DC Lisinopril (Prinivil) 20 mg HS PO Last administered on 05/21/17 19:26; Start 05/20/17 at 21:00 Paroxetine HCl (Paxil) 20 mg DAILY PO Last administered on 05/22/17 08:52; Start 05/21/17 at 09:00 Pravastatin Sodium (Pravachol) 20 mg DAILY PO Last administered on 05/22/17 08 :53; Start 05/21/17 at 09:00 Patient Own Medication PT OWN MED: Conjuga... DAILY PO ; Start 05/21/17 at 09:00 ; Status Future Hold Miscellaneous Information ALL NURSING DEPARTME... UNSCH PRN .XX SEE LABEL COMMENTS; Start 05/20/17 at 10:01; Stop 05/21/17 at 10:00; Status DC Magnesium Hydroxide (Milk Of Magnesia Liq) 30 ml BID PRN PO MILD CONSTIPATION Last administered on 05/21/17 19:27; Start 05/20/17 at 23:45 Dextrose/Sodium Chloride 500 ml @ 500 mls/hr BOLUS ONCE IV Last administered on 05/21/17 20:45; Start 11/2/17 at 20:45; Stop 05/21/17 at 21:44; Status DC Prochlorperazine Edisylate (Compazine Inj) 5 mg ONCE ONCE IV PUSH Last administered on 05/21/17t 20:49; Start 05/21/17 at 20:45; Stop 05/21/17 at 20:46 ; Status DC A/P Assessment and Plan A/P - osteoarthritis of the left shoulder- s/p left shoulder arthroplasty- management per ortho. -hypertension/ dyslipidemia; resumed home meds -fever- post-op; will monitor. -DVT prophylaxis; on Xarelto-per ortho Kerrie Khalil MD May 22, 2017 12:02
[2017-05-22] MEDS: LISINOPRIL 20 MG TAB PO SCH (20:26)
[2017-05-22] MEDS: ACETAMINOPHEN 325 MG TAB PO PRN (22:06)
[2017-05-23] VITALS: BP 146/74; PULSE 98; RESP 18; TEMP 98.6; O2SAT 98
[2017-05-23] MEDS: DEXT 5%-NACL 0.45% 1000 ML INJ 1,000 ML IV SCH ×2 (04:00→12:00)
[2017-05-23 08:00] VITALS: BP 139/81; PULSE 95; RESP 18; TEMP 99; O2SAT 94
[2017-05-23] MEDS: RIVAROXABAN 10 MG TAB PO SCH (08:22)
[2017-05-23] MEDS: PARoxetine HCL 20 MG TAB PO SCH (08:22)
[2017-05-23] MEDS: PRAVASTATIN SOD 20 MG TAB PO SCH (08:22)
[2017-05-23] MEDS: SODIUM CHLORIDE 0.9% FLUSH 5 ML FLUSH IVF SCH (08:23)
[2017-05-23] MEDS: ACETAMINOPHEN 325 MG TAB PO PRN (08:23)
--- NOTE | 2017-05-23 11:39 | HHI.PR ---
Subjective Remarks overall doing fine. pain is controlled. no new complaints. Objective Vitals Vital Signs Date Time Temp Pulse Resp B/P (MAP) Pulse Ox O2 Delivery O2 Flow Rate FiO2 05/23/17 08:00 99.0 95 18 139/81 (100) 94 05/23/17 00:00 98.6 98 18 146/74 (98) 98 05/22/17 19:56 100.0 69 16 161/79 (106) 98 05/22/17 16:00 98.8 95 18 156/67 (96) 94 05/22/17 12:00 98.6 93 18 151/81 (104) 90 I/O 05/22/17 05/22/17 05/22/17 05/23/17 05/23/17 05/23/17 07:00 15:00 23:00 07:00 15:00 23:00 Intake Total 360 ml 300 ml 720 ml 480 ml Balance 360 ml 300 ml 720 ml 480 ml Intake Oral 360 ml 300 ml 720 ml 480 ml # Voids 1 3 2 1 # Bowel Movements 0 Result Diagram: 05/21/17 0622 Imaging Last Impressions Shoulder X-Ray 05/20/17 0000 Signed Impressions: Service Date/Time: Saturday, May 20, 2017 10:22 - CONCLUSION: Anatomic alignment. Bigg Flores MD FACR Objective Remarks GENERAL: This is a well-nourished, well-developed patient, in no apparent distress. CARDIOVASCULAR: Regular rate and regular rhythm without murmurs, gallops, or rubs. RESPIRATORY: Clear to auscultation. Breath sounds equal bilaterally. No wheezes , rales, or rhonchi. GASTROINTESTINAL: Abdomen soft, non-tender, nondistended. Normal, active bowel sounds MUSCULOSKELETAL: left shoulder in clean dressing. NEURO: Alert & Oriented x4 to person, place, time, situation. Moves all ext x4 Medications and IVs Current Medications Lactated Ringer's 1,000 ml @ 30 mls/hr Q24H PRN IV SEE LABEL COMMENTS Last administered on 05/20/17t 06:00; Start 05/20/17 at 05:30; Stop 05/20/17 at 13:51 ; Status DC Sodium Chloride 500 ml @ 30 mls/hr [id number] PRN IV SEE LABEL COMMENTS; Start at 05:30; Stop 05/20/17 at 13:51; Status DC Metoprolol Tartrate (Lopressor) 25 mg MECHANIC HELPER PRN PO SEE LABEL COMMENTS; Start 05/20/17 at 05:30; Stop 05/20/17 at 13:51; Status DC Povidone Iodine (Betadine 5% Antisepsis Kit) 1 applic MECHANIC HELPER PRN EACH NARE SEE LABEL COMMENTS Last administered on 05/20/17 06:00; Start 05/20/17 at 05:30 ; Stop 05/20/17 at 13:51; Status DC Chlorhexidine Gluconate (Chlorhexidine 2% Cloth) 3 pack MECHANIC HELPER PRN TOPICAL SEE LABEL COMMENTS Last administered on 05/20/17 06:00; Start 05/20/17 at 05:30 ; Stop 05/20/17 at 13:51; Status DC Insulin Human Regular (NovoLIN R INJ) See Protocol Table ... MECHANIC HELPER PRN SQ SEE PROTOCOL TABLE; Start 05/20/17 at 05:30; Stop 05/20/17 at 13:51; Status DC Povidone Iodine (Betadine 7.5% Scrub) 1 applic ONCE TOPICAL Last administered on 05/20/17 06:00; Start 05/20/17 at 05:45; Stop 05/23/17 at 05:44; Status DC Cefazolin Sodium/ Dextrose 50 ml @ 100 mls/hr MECHANIC HELPER IV ; Start 05/20/17 at 05:45; Stop 05/20/17 at 13:51; Status DC Tranexamic Acid 1000 mg/Sodium Chloride 110 ml @ 220 mls/hr ONCE IV Last administered on 05/20/17 06:44; Start 05/20/17 at 07:00; Stop 05/20/17 at 13:00 ; Status DC Tranexamic Acid 1000 mg/Sodium Chloride 110 ml @ 220 mls/hr ONCE IV Last administered on 05/20/17 09:44; Start 05/20/17 at 10:00; Stop 05/20/17 at 11:00 ; Status DC Cefazolin Sodium (Ancef Inj) 2,000 mg STK-MED ONCE .ROUTE Last administered on 05/18/17 06:44; Start 05/20/17 at 05:54; Stop 05/20/17 at 05:55; Status DC Dextrose/Sodium Chloride 1,000 ml @ 125 mls/hr Q8H IV Last administered on 04:17; Start 05/20/17 at 12:00 IV Flush (NS Flush) 2 ml UNSCH PRN IVF FLUSH AFTER USING IV ACCESS; Start 05/20 at 12:00 IV Flush (NS Flush) 2 ml BID IVF Last administered on 05/23/17 08:23; Start 05/20/17 at 21:00 Cefazolin Sodium 1000 mg/Sodium Chloride 100 ml @ 200 mls/hr Q6H IV Last administered on 05/21/17 01:45; Start 05/20/17 at 13:00; Stop 05/21/17 at 01:29 ; Status DC Miscellaneous Information (Post-op Orders (for Pharmacy)) STAT ONCE XX ; Start 05/20/17 at 12:00; Stop 05/20/17 at 12:01; Status DC Rivaroxaban (Xarelto) 10 mg Q24H PO Last administered on 05/23/17 08:22; Start 05/21/17 at 09:00 Miscellaneous Medication ([facility] [place] [facility] Information) ONCE ONCE XX ; Start 05/20/17 at 12:00; Stop 05/20/17 at 12:01; Status DC Acetaminophen/ Hydrocodone Bitart ([place] 5-325 Mg) 1 tab Q4H PRN PO PAIN LESS THAN 5 ON SCALE Last administered on 05/22/17 08:52; Start 05/20/17 at 12:00 Acetaminophen/ Hydrocodone Bitart ([place] 5-325 Mg) 2 tab Q4H PRN PO PAIN SCALE 5 TO 10 Last administered on 05/21/17 23:34; Start 05/20/17 at 12:00 Tranexamic Acid 1000 mg/Sodium Chloride 110 ml @ 200 mls/hr ONCE ONCE IV ; Start 05/20/17 at 10:05; Stop 05/20/17 at 11:38; Status DC Ondansetron HCl (Zofran Inj) 4 mg Q6H PRN IVP NAUSEA OR VOMITING Last administered on 05/21/17 16:41; Start 05/20/17 at 12:00 Zolpidem Tartrate (Ambien) 5 mg HS PRN PO SLEEP; Start 05/20/17 at 21:00 Bisacodyl (Dulcolax Supp) 10 mg DAILY PRN RECTAL SEVERE CONSTIPATION; Start at 12:00 Naloxone HCl (Narcan Inj) 0.4 mg UNSCH PRN IV PUSH RESPIRATORY RATE LESS THAN 10; Start 05/20/17 at 12:00; Stop 05/22/17 at 11:59; Status DC Morphine Sulfate (Morphine 1 Mg/ ml PATTERN CHANGER AND REPAIRER) 30 mg UNSCH IV Last administered on 04:21; Start 05/20/17 at 12:00; Stop 05/22/17 at 11:59; Status DC PATTERN CHANGER AND REPAIRER Dosage Infused (Pha) 1 Q8HR .XX Last administered on 05/21/17 06:00; Start 05/20/17 at 14:00; Stop 05/22/17 at 13:59; Status DC Bupivacaine HCl (Marcaine Pf 0.5% Inj) 30 ml STK-MED ONCE .ROUTE ; Start at 10:27; Stop 05/20/17 at 10:28; Status DC Lisinopril (Prinivil) 20 mg HS PO Last administered on 05/22/17 20:26; Start 05/20/17 at 21:00 Paroxetine HCl (Paxil) 20 mg DAILY PO Last administered on 05/23/17 08:22; Start 05/21/17 at 09:00 Pravastatin Sodium (Pravachol) 20 mg DAILY PO Last administered on 05/23/17 08 :22; Start 05/21/17 at 09:00 Patient Own Medication PT OWN MED: Conjuga... DAILY PO ; Start 05/21/17 at 09:00 ; Status Future Hold Miscellaneous Information ALL NURSING DEPARTME... UNSCH PRN .XX SEE LABEL COMMENTS; Start 05/20/17 at 10:01; Stop 05/21/17 at 10:00; Status DC Magnesium Hydroxide (Milk Of Magnesia Liq) 30 ml BID PRN PO MILD CONSTIPATION Last administered on 05/21/17 19:27; Start 05/20/17 at 23:45 Dextrose/Sodium Chloride 500 ml @ 500 mls/hr BOLUS ONCE IV Last administered on 05/21/17 20:45; Start 05/21/17 at 20:45; Stop 05/21/17 at 21:44; Status DC Prochlorperazine Edisylate (Compazine Inj) 5 mg ONCE ONCE IV PUSH Last administered on 05/21/17 20:49; Start 05/21/17 at 20:45; Stop 05/21/17 at 20:46 ; Status DC Acetaminophen (Tylenol) 650 mg Q6H PRN PO pain > 2 Last administered on 08:23; Start 05/22/17 at 21:30 A/P Assessment and Plan A/P - osteoarthritis of the left shoulder- s/p left shoulder arthroplasty- management per ortho. -hypertension/ dyslipidemia; resumed home meds -fever- post-op; will monitor. -DVT prophylaxis; on Xarelto-per ortho Discharge Planning dc planning per ortho. Kerrie Khalil MD May 23, 2017 11:39
--- NOTE | 2017-05-23 11:39 | HHI.PR ---
Subjective Remarks overall doing fine. pain is controlled. no new complaints. Objective Vitals Vital Signs Date Time Temp Pulse Resp B/P (MAP) Pulse Ox O2 Delivery O2 Flow Rate FiO2 05/23/17 08:00 99.0 95 18 139/81 (100) 94 05/23/17 00:00 98.6 98 18 146/74 (98) 98 05/22/17 19:56 100.0 69 16 161/79 (106) 98 05/22/17 16:00 98.8 95 18 156/67 (96) 94 05/22/17 12:00 98.6 93 18 151/81 (104) 90 I/O 05/22/17 05/22/17 05/22/17 05/23/17 05/23/17 05/23/17 07:00 15:00 23:00 07:00 15:00 23:00 Intake Total 360 ml 300 ml 720 ml 480 ml Balance 360 ml 300 ml 720 ml 480 ml Intake Oral 360 ml 300 ml 720 ml 480 ml # Voids 1 3 2 1 # Bowel Movements 0 Result Diagram: 05/21/17 0622 Imaging Last Impressions Shoulder X-Ray 05/20/17 0000 Signed Impressions: Service Date/Time: Saturday, May 20, 2017 10:22 - CONCLUSION: Anatomic alignment. Bigg Flores MD FACR Objective Remarks GENERAL: This is a well-nourished, well-developed patient, in no apparent distress. CARDIOVASCULAR: Regular rate and regular rhythm without murmurs, gallops, or rubs. RESPIRATORY: Clear to auscultation. Breath sounds equal bilaterally. No wheezes , rales, or rhonchi. GASTROINTESTINAL: Abdomen soft, non-tender, nondistended. Normal, active bowel sounds MUSCULOSKELETAL: left shoulder in clean dressing. NEURO: Alert & Oriented x4 to person, place, time, situation. Moves all ext x4 Medications and IVs Current Medications Lactated Ringer's 1,000 ml @ 30 mls/hr Q24H PRN IV SEE LABEL COMMENTS Last administered on 05/20/17t 06:00; Start 05/20/17 at 05:30; Stop 05/20/17 at 13:51 ; Status DC Sodium Chloride 500 ml @ 30 mls/hr [id number] PRN IV SEE LABEL COMMENTS; Start at 05:30; Stop 05/20/17 at 13:51; Status DC Metoprolol Tartrate (Lopressor) 25 mg VENDING MACHINE FILLER PRN PO SEE LABEL COMMENTS; Start 05/20/17 at 05:30; Stop 05/20/17 at 13:51; Status DC Povidone Iodine (Betadine 5% Antisepsis Kit) 1 applic VENDING MACHINE FILLER PRN EACH NARE SEE LABEL COMMENTS Last administered on 05/20/17 06:00; Start 05/20/17 at 05:30 ; Stop 05/20/17 at 13:51; Status DC Chlorhexidine Gluconate (Chlorhexidine 2% Cloth) 3 pack [employer] PRN TOPICAL SEE LABEL COMMENTS Last administered on 05/20/17 06:00; Start 05/20/17 at 05:30 ; Stop 05/20/17 at 13:51; Status DC Insulin Human Regular (NovoLIN R INJ) See Protocol Table ... VENDING MACHINE FILLER PRN SQ SEE PROTOCOL TABLE; Start 05/20/17 at 05:30; Stop 05/20/17 at 13:51; Status DC Povidone Iodine (Betadine 7.5% Scrub) 1 applic ONCE TOPICAL Last administered on 05/20/17 06:00; Start 05/20/17 at 05:45; Stop 05/23/17 at 05:44; Status DC Cefazolin Sodium/ Dextrose 50 ml @ 100 mls/hr [employer] IV ; Start 05/20/17 at 05:45; Stop 05/20/17 at 13:51; Status DC Tranexamic Acid 1000 mg/Sodium Chloride 110 ml @ 220 mls/hr ONCE IV Last administered on 05/20/17 06:44; Start 05/20/17 at 07:00; Stop 05/20/17 at 13:00 ; Status DC Tranexamic Acid 1000 mg/Sodium Chloride 110 ml @ 220 mls/hr ONCE IV Last administered on 05/20/17 09:44; Start 05/20/17 at 10:00; Stop 05/20/17 at 11:00 ; Status DC Cefazolin Sodium (Ancef Inj) 2,000 mg STK-MED ONCE .ROUTE Last administered on 05/18/17 06:44; Start 05/20/17 at 05:54; Stop 05/20/17 at 05:55; Status DC Dextrose/Sodium Chloride 1,000 ml @ 125 mls/hr Q8H IV Last administered on 04:17; Start 05/20/17 at 12:00 IV Flush (NS Flush) 2 ml UNSCH PRN IVF FLUSH AFTER USING IV ACCESS; Start 05/20 at 12:00 IV Flush (NS Flush) 2 ml BID IVF Last administered on 05/23/17 08:23; Start 05/20/17 at 21:00 Cefazolin Sodium 1000 mg/Sodium Chloride 100 ml @ 200 mls/hr Q6H IV Last administered on 05/21/17 01:45; Start 05/20/17 at 13:00; Stop 05/21/17 at 01:29 ; Status DC Miscellaneous Information (Post-op Orders (for Pharmacy)) STAT ONCE XX ; Start 05/20/17 at 12:00; Stop 05/20/17 at 12:01; Status DC Rivaroxaban (Xarelto) 10 mg Q24H PO Last administered on 05/23/17 08:22; Start 05/21/17 at 09:00 Miscellaneous Medication ([facility]) ONCE ONCE XX ; Start 05/20/17 at 12:00; Stop 05/20/17 at 12:01; Status DC Acetaminophen/ Hydrocodone Bitart ([place] 5-325 Mg) 1 tab Q4H PRN PO PAIN LESS THAN 5 ON SCALE Last administered on 05/22/17 08:52; Start 05/20/17 at 12:00 Acetaminophen/ Hydrocodone Bitart ([place] 5-325 Mg) 2 tab Q4H PRN PO PAIN SCALE 5 TO 10 Last administered on 05/21/17 23:34; Start 05/20/17 at 12:00 Tranexamic Acid 1000 mg/Sodium Chloride 110 ml @ 200 mls/hr ONCE ONCE IV ; Start 05/20/17 at 10:05; Stop 05/20/17 at 11:38; Status DC Ondansetron HCl (Zofran Inj) 4 mg Q6H PRN IVP NAUSEA OR VOMITING Last administered on 05/21/17 16:41; Start 05/20/17 at 12:00 Zolpidem Tartrate (Ambien) 5 mg HS PRN PO SLEEP; Start 05/20/17 at 21:00 Bisacodyl (Dulcolax Supp) 10 mg DAILY PRN RECTAL SEVERE CONSTIPATION; Start at 12:00 Naloxone HCl (Narcan Inj) 0.4 mg UNSCH PRN IV PUSH RESPIRATORY RATE LESS THAN 10; Start 05/20/17 at 12:00; Stop 05/22/17 at 11:59; Status DC Morphine Sulfate (Morphine 1 Mg/ ml SHIP CARPENTER) 30 mg UNSCH IV Last administered on 04:21; Start 05/20/17 at 12:00; Stop 05/22/17 at 11:59; Status DC SHIP CARPENTER Dosage Infused (Pha) 1 Q8HR .XX Last administered on 05/21/17 06:00; Start 05/20/17 at 14:00; Stop 05/22/17 at 13:59; Status DC Bupivacaine HCl (Marcaine Pf 0.5% Inj) 30 ml STK-MED ONCE .ROUTE ; Start at 10:27; Stop 05/20/17 at 10:28; Status DC Lisinopril (Prinivil) 20 mg HS PO Last administered on 05/22/17 20:26; Start 05/20/17 at 21:00 Paroxetine HCl (Paxil) 20 mg DAILY PO Last administered on 05/23/17 08:22; Start 05/21/17 at 09:00 Pravastatin Sodium (Pravachol) 20 mg DAILY PO Last administered on 05/23/17 08 :22; Start 05/21/17 at 09:00 Patient Own Medication PT OWN MED: Conjuga... DAILY PO ; Start 05/21/17 at 09:00 ; Status Future Hold Miscellaneous Information ALL NURSING DEPARTME... UNSCH PRN .XX SEE LABEL COMMENTS; Start 05/20/17 at 10:01; Stop 05/21/17 at 10:00; Status DC Magnesium Hydroxide (Milk Of Magnesia Liq) 30 ml BID PRN PO MILD CONSTIPATION Last administered on 05/21/17 19:27; Start 05/20/17 at 23:45 Dextrose/Sodium Chloride 500 ml @ 500 mls/hr BOLUS ONCE IV Last administered on 05/21/17 20:45; Start 05/21/17 at 20:45; Stop 05/21/17 at 21:44; Status DC Prochlorperazine Edisylate (Compazine Inj) 5 mg ONCE ONCE IV PUSH Last administered on 05/21/17 20:49; Start 05/21/17 at 20:45; Stop 05/21/17 at 20:46 ; Status DC Acetaminophen (Tylenol) 650 mg Q6H PRN PO pain > 2 Last administered on 08:23; Start 05/22/17 at 21:30 A/P Assessment and Plan A/P - osteoarthritis of the left shoulder- s/p left shoulder arthroplasty- management per ortho. -hypertension/ dyslipidemia; resumed home meds -fever- post-op; will monitor. -DVT prophylaxis; on Xarelto-per ortho Discharge Planning dc planning per ortho. Kerrie Khalil MD May 23, 2017 11:39
--- NOTE | 2017-05-23 11:39 | HHI.PR ---
Subjective Remarks overall doing fine. pain is controlled. no new complaints. Objective Vitals Vital Signs Date Time Temp Pulse Resp B/P (MAP) Pulse Ox O2 Delivery O2 Flow Rate FiO2 05/23/17 08:00 99.0 95 18 139/81 (100) 94 05/23/17 00:00 98.6 98 18 146/74 (98) 98 05/22/17 19:56 100.0 69 16 161/79 (106) 98 05/22/17 16:00 98.8 95 18 156/67 (96) 94 05/22/17 12:00 98.6 93 18 151/81 (104) 90 I/O 05/22/17 05/22/17 05/22/17 05/23/17 05/23/17 05/23/17 07:00 15:00 23:00 07:00 15:00 23:00 Intake Total 360 ml 300 ml 720 ml 480 ml Balance 360 ml 300 ml 720 ml 480 ml Intake Oral 360 ml 300 ml 720 ml 480 ml # Voids 1 3 2 1 # Bowel Movements 0 Result Diagram: 05/21/17 0622 Imaging Last Impressions Shoulder X-Ray 05/20/17 0000 Signed Impressions: Service Date/Time: Saturday, May 20, 2017 10:22 - CONCLUSION: Anatomic alignment. Bigg Flores MD FACR Objective Remarks GENERAL: This is a well-nourished, well-developed patient, in no apparent distress. CARDIOVASCULAR: Regular rate and regular rhythm without murmurs, gallops, or rubs. RESPIRATORY: Clear to auscultation. Breath sounds equal bilaterally. No wheezes , rales, or rhonchi. GASTROINTESTINAL: Abdomen soft, non-tender, nondistended. Normal, active bowel sounds MUSCULOSKELETAL: left shoulder in clean dressing. NEURO: Alert & Oriented x4 to person, place, time, situation. Moves all ext x4 Medications and IVs Current Medications Lactated Ringer's 1,000 ml @ 30 mls/hr Q24H PRN IV SEE LABEL COMMENTS Last administered on 05/20/17t 06:00; Start 05/20/17 at 05:30; Stop 05/20/17 at 13:51 ; Status DC Sodium Chloride 500 ml @ 30 mls/hr [id number] PRN IV SEE LABEL COMMENTS; Start at 05:30; Stop 05/20/17 at 13:51; Status DC Metoprolol Tartrate (Lopressor) 25 mg DINING ROOM MAID PRN PO SEE LABEL COMMENTS; Start 05/20/17 at 05:30; Stop 05/20/17 at 13:51; Status DC Povidone Iodine (Betadine 5% Antisepsis Kit) 1 applic D[employer]ING ROOM [employer]ID PRN EACH NARE SEE LABEL COMMENTS Last administered on 05/20/17 06:00; Start 05/20/17 at 05:30 ; Stop 05/20/17 at 13:51; Status DC Chlorhexidine Gluconate (Chlorhexidine 2% Cloth) 3 pack [employer]ING [employer]OM [employer]ID PRN TOPICAL SEE LABEL COMMENTS Last administered on 05/20/17 06:00; Start 05/20/17 at 05:30 ; Stop 05/20/17 at 13:51; Status DC Insulin Human Regular (NovoLIN R INJ) See Protocol Table ... DINING ROOM [employer]ID PRN SQ SEE PROTOCOL TABLE; Start 05/20/17 at 05:30; Stop 05/20/17 at 13:51; Status DC Povidone Iodine (Betadine 7.5% Scrub) 1 applic ONCE TOPICAL Last administered on 05/20/17 06:00; Start 05/20/17 at 05:45; Stop 05/23/17 at 05:44; Status DC Cefazolin Sodium/ Dextrose 50 ml @ 100 mls/hr D[employer]ING ROOM MA[employer] IV ; Start 05/20/17 at 05:45; Stop 05/20/17 at 13:51; Status DC Tranexamic Acid 1000 mg/Sodium Chloride 110 ml @ 220 mls/hr ONCE IV Last administered on 05/20/17 06:44; Start 05/20/17 at 07:00; Stop 05/20/17 at 13:00 ; Status DC Tranexamic Acid 1000 mg/Sodium Chloride 110 ml @ 220 mls/hr ONCE IV Last administered on 05/20/17 09:44; Start 05/20/17 at 10:00; Stop 05/20/17 at 11:00 ; Status DC Cefazolin Sodium (Ancef Inj) 2,000 mg STK-MED ONCE .ROUTE Last administered on 05/18/17 06:44; Start 05/20/17 at 05:54; Stop 05/20/17 at 05:55; Status DC Dextrose/Sodium Chloride 1,000 ml @ 125 mls/hr Q8H IV Last administered on 04:17; Start 05/20/17 at 12:00 IV Flush (NS Flush) 2 ml UNSCH PRN IVF FLUSH AFTER USING IV ACCESS; Start 05/20 at 12:00 IV Flush (NS Flush) 2 ml BID IVF Last administered on 05/23/17 08:23; Start 05/20/17 at 21:00 Cefazolin Sodium 1000 mg/Sodium Chloride 100 ml @ 200 mls/hr Q6H IV Last administered on 05/21/17 01:45; Start 05/20/17 at 13:00; Stop 05/21/17 at 01:29 ; Status DC Miscellaneous Information (Post-op Orders (for Pharmacy)) STAT ONCE XX ; Start 05/20/17 at 12:00; Stop 05/20/17 at 12:01; Status DC Rivaroxaban (Xarelto) 10 mg Q24H PO Last administered on 05/23/17 08:22; Start 05/21/17 at 09:00 Miscellaneous Medication [place] ONCE ONCE XX ; Start 05/20/17 at 12:00; Stop 05/20/17 at 12:01; Status DC Acetaminophen/ Hydrocodone Bitart ([place] 5-325 Mg) 1 tab Q4H PRN PO PAIN LESS THAN 5 ON SCALE Last administered on 05/22/17 08:52; Start 05/20/17 at 12:00 Acetaminophen/ Hydrocodone Bitart ([place] 5-325 Mg) 2 tab Q4H PRN PO PAIN SCALE 5 TO 10 Last administered on 05/21/17 23:34; Start 05/20/17 at 12:00 Tranexamic Acid 1000 mg/Sodium Chloride 110 ml @ 200 mls/hr ONCE ONCE IV ; Start 05/20/17 at 10:05; Stop 05/20/17 at 11:38; Status DC Ondansetron HCl (Zofran Inj) 4 mg Q6H PRN IVP NAUSEA OR VOMITING Last administered on 05/21/17 16:41; Start 05/20/17 at 12:00 Zolpidem Tartrate (Ambien) 5 mg HS PRN PO SLEEP; Start 05/20/17 at 21:00 Bisacodyl (Dulcolax Supp) 10 mg DAILY PRN RECTAL SEVERE CONSTIPATION; Start at 12:00 Naloxone HCl (Narcan Inj) 0.4 mg UNSCH PRN IV PUSH RESPIRATORY RATE LESS THAN 10; Start 05/20/17 at 12:00; Stop 05/22/17 at 11:59; Status DC Morphine Sulfate (Morphine 1 Mg/ ml [employer]EARCH ASSOCIATE POLICY) 30 mg UNSCH IV Last administered on 04:21; Start 05/20/17 at 12:00; Stop 05/22/17 at 11:59; Status DC [employer]OCIATE POLICY Dosage Infused (Pha) 1 Q8HR .XX Last administered on 05/21/17 06:00; Start 05/20/17 at 14:00; Stop 05/22/17 at 13:59; Status DC Bupivacaine HCl (Marcaine Pf 0.5% Inj) 30 ml STK-MED ONCE .ROUTE ; Start at 10:27; Stop 05/20/17 at 10:28; Status DC Lisinopril (Prinivil) 20 mg HS PO Last administered on 05/22/17 20:26; Start 05/20/17 at 21:00 Paroxetine HCl (Paxil) 20 mg DAILY PO Last administered on 05/23/17 08:22; Start 05/21/17 at 09:00 Pravastatin Sodium (Pravachol) 20 mg DAILY PO Last administered on 05/23/17 08 :22; Start 05/21/17 at 09:00 Patient Own Medication PT OWN MED: Conjuga... DAILY PO ; Start 05/21/17 at 09:00 ; Status Future Hold Miscellaneous Information ALL NURSING DEPARTME... UNSCH PRN .XX SEE LABEL COMMENTS; Start 05/20/17 at 10:01; Stop 05/21/17 at 10:00; Status DC Magnesium Hydroxide (Milk Of Magnesia Liq) 30 ml BID PRN PO MILD CONSTIPATION Last administered on 05/21/17 19:27; Start 05/20/17 at 23:45 Dextrose/Sodium Chloride 500 ml @ 500 mls/hr BOLUS ONCE IV Last administered on 05/21/17 20:45; Start 05/21/17 at 20:45; Stop 05/21/17 at 21:44; Status DC Prochlorperazine Edisylate (Compazine Inj) 5 mg ONCE ONCE IV PUSH Last administered on 05/21/17 20:49; Start 05/21/17 at 20:45; Stop 05/21/17 at 20:46 ; Status DC Acetaminophen (Tylenol) 650 mg Q6H PRN PO pain > 2 Last administered on 08:23; Start 05/22/17 at 21:30 A/P Assessment and Plan A/P - osteoarthritis of the left shoulder- s/p left shoulder arthroplasty- management per ortho. -hypertension/ dyslipidemia; resumed home meds -fever- post-op; will monitor. -DVT prophylaxis; on Xarelto-per ortho Discharge Planning dc planning per ortho. Kerrie Khalil MD May 23, 2017 11:39
== END 2017-05-23 12:11 | disposition home health service (06) | DRG 483 ==
LOC: HSDI 05:10 → N06A 11:27
PROVIDERS: ADMIT Orthopaedic Surgery; ATTEND Orthopaedic Surgery
PROC: 0RRK00Z Replacement of Left Shoulder Joint with Reverse Ball and Socket Synthetic Substitute, Open Approach (ICD-10-PCS; principal; 2017-05-20 07:00)
DX: M19.012 Primary osteoarthritis, left shoulder (principal); I10 Essential (primary) hypertension; S46.812A Strain of other muscles, fascia and tendons at shoulder and upper arm level, left arm, initial encounter; E78.5 Hyperlipidemia, unspecified; R50.82 Postprocedural fever; Z87.891 Personal history of nicotine dependence
CPT/HCPCS: 73020; 85014; 85018; 88305; 88311; 93005; 94150; J0690; J0780; J2270; J2405; J7120